=== PATIENT | female | born 1950 | race Caucasian/White ===

== ENCOUNTER 2021-05-09 09:37 | Inpatient (IN) ==
[2021-05-09 11:54] LABS: Basophils # (Auto) 0.06 K/mcL (0.00-0.30); Basophils % (Auto) 0.2 % (0.0-2.0); Eosinophils # (Auto) 0.01 K/mcL (0.00-0.70); Eosinophils % (Auto) 0 % (0.0-7.0); Hematocrit 38.8 % (34.1-44.9); Hemoglobin 11.9 g/dL (11.2-15.7); Lymphocytes # (Auto) 1.02 K/mcL (1.50-4.80); Lymphocytes % (Auto) 3.7 % (15.5-49.0); Mean Cell Volume 71.6 fL (80.0-100.0); Mean Corpuscular HGB Conc 30.7 g/dL (31.0-36.0); Mean Platelet Volume 10.3 fL (7.4-10.4); Monocytes # (Auto) 1.02 K/mcL (0.10-0.90); Monocytes % (Auto) 3.7 % (1.0-12.0); Neutrophils % (Auto) 92.4 % (38.0-78.0); Platelet Count 417 K/mcL (140-440); RBC 5.42 M/mcL (3.59-5.38); Red Cell Distribution Width 21.6 % (11.5-14.5); WBC 27.5 K/mcL (4.5-11.0)
[2021-05-09 12:00] LABS: ALT/SGPT 17 U/L (<40); AST/SGOT 21 U/L (<32); Albumin 2.9 gm/dL (3.2-5.2); Albumin/Globulin Ratio 0.8 (1.0-2.3); Alkaline Phosphatase 83 U/L (39-117); Bilirubin,Total 0.3 mg/dL (0.1-1.0); Blood Urea Nitrogen 17 mg/dL (8-23); Calcium 9.3 mg/dL (8.6-10.4); Carbon Dioxide 29 mmol/L (22-30); Chloride 93 mmol/L (96-108); Globulin 3.7 gm/dL (2.2-3.7); Glomerular Filtration Rate 91; Glucose 133 mg/dL (70-105)
--- NOTE | 2021-05-09 12:21 | Emergency Department Note ---
Abdominal Pain HPI General Chief Complaint: Abdominal Pain Stated Complaint: abdominal pain Time Seen by Provider: 05/09/21 12:08 Source: patient Mode of arrival: ambulatory Limitations: no limitations History of Present Illness HPI Narrative: 71-year-old female presents to the ER for complaints of abdominal pain. She was seen on 04/29/2021 and diagnosed with mild diverticulitis. She was placed on Augmentin and has completed that. Unfortunately, her symptoms have not ultimately improved. She does complain of some chills, but no fevers. She's had mild nausea, but no vomiting. Last stool was about a teaspoon of liquid stool last night, denies melena or hematochezia. She did pass a small amount of gas this morning. Previous abdominal surgeries include a hysterectomy and appendectomy. She is on chronic morphine for scoliosis. She did increase her morphine equivalent dosing with short acting after her evaluation here over a week ago. She is now out of that. She said that did help with her pain. She does struggle with chronic constipation. She called Dr. Montelongo's office this morning for recommendations and they felt she should be reevaluated in the ER. Dr. Montelongo is her regular walter roenterologist. Of note the patient has a history of lung cancer status post chemo and radiation therapies. She also has a leukocytosis at baseline, which is allegedly been worked up by her heme-oncologist without clear diagnosis. Related Data Home Medications Medication Instructions Recorded Confirmed celecoxib 200 mg PO DAILY 01/05/16 07/27/20 citalopram 20 mg PO DAILY 01/05/16 07/27/20 omeprazole 20 mg PO ACB 01/05/16 07/27/20 cholecalciferol (vitamin D3) 250 10,000 unit PO QDAY 11/16/17 07/27/20 mcg (10,000 unit) capsule estradiol cypionate 5 mg/mL 5 mg IM QWEEK ml 11/16/17 07/27/20 intramuscular oil magnesium 250 mg tablet 250 mg PO QDAY 11/16/17 07/27/20 prasterone (dhea) 50 mg tablet 100 mg PO QDAY tab 11/16/17 07/27/20 progesterone micronized 200 mg 200 mg PO QHS 11/16/17 07/27/20 capsule testosterone cypionate 100 mg/mL 50 mg IM QDAY ml 11/16/17 07/27/20 intramuscular oil thyroid (pork) 65 mg tablet 130 mg PO QDAY tab 11/16/17 07/27/20 zolpidem 10 mg tablet 10 mg PO PRN tab 11/16/17 07/27/20 Ketorolac Tromethamine 11/18/17 07/27/20 eletriptan [Relpax] 40 mg PO 11/18/17 07/27/20 spironolactone [Aldactone] 100 mg PO DAILY 11/18/17 07/27/20 Previous Rx's Medication Instructions Recorded amoxicillin-pot clavulanate 1 tab PO BID #20 tab 04/29/21 [Augmentin] morphine 7.5 mg PO Q8H PRN #6 tab 04/29/21 Allergies Allergy/AdvReac Type Severity Reaction Status Date / Time aspirin Allergy Unknown Unknown Verified 05/09/21 09:39 Review of Systems ROS ROS Narrative: Narrative: All systems ED: reviewed and negative except as stated. PFSH Narrative Patient History Narrative: Narrative: Medical/Surgical/Family History All Active Problems (Updated 05/09/21 @ 16:01 by Colleen Tanner PA-C) Diverticulitis (Acute) SBO (small bowel obstruction) (Acute) Hyponatremia (Acute) H/O leukocytosis (Acute) Muscle stiffness (Chronic) Muscle pain (Chronic) Muscle weakness (Chronic) Joint pain (Chronic) Arthritis (Chronic) Wears dentures (Chronic) Ringing in ears (Chronic) Fatigue (Chronic) Weakness (Chronic) History of surgery (Chronic) History of right hip replacement (Chronic) History of appendectomy (Chronic) History of cervical discectomy (Chronic) History of surgery (Chronic) History of fracture (Chronic) History of tonsillectomy (Chronic) History of colonoscopy (Chronic) History of esophagogastroduodenoscopy (EGD) (Chronic) History of hysterectomy (Chronic) Alcoholism (Chronic) COPD (chronic obstructive pulmonary disease) (Chronic) Right shoulder pain (Chronic) History of surgery (Chronic) Asthma (Chronic) Low back pain (Chronic) Radiculopathy, lumbar region (Chronic) Radiculopathy, lumbosacral region (Chronic) Pain in left hip (Chronic) Bilateral primary osteoarthritis of hip (Chronic) Calculus of kidney (Chronic) Ureteral calculus (Chronic) Viral exanthem (Chronic) Rash (Chronic) Lower abdominal pain (Chronic) Medical History Alcoholism Arthritis Asthma Bilateral primary osteoarthritis of hip Calculus of kidney COPD (chronic obstructive pulmonary disease) Fatigue History of fracture Joint pain Low back pain Muscle pain Muscle stiffness Muscle weakness Pain in left hip Radiculopathy, lumbar region Radiculopathy, lumbosacral region Right shoulder pain Ringing in ears Ureteral calculus Weakness Wears dentures Surgical History History of appendectomy History of cervical discectomy History of colonoscopy History of esophagogastroduodenoscopy (EGD) History of hysterectomy History of right hip replacement History of surgery TF JANELLE #2 Rt L2-3, L5-S1 w/sed 06/11/1803/02 TF JANELLE #1 L2-3, Right L5-S1, left w/sed 03/12/201801/30 TF JANELLE #2 Lt L5-S1 w/sed 01/29/1811/30 Intra-articular Hip Joint Injection, left w/o sed 11/29/1710/31 TF JANELLE #1 L5-S1, S1, left w/sed 11/12/201706/01 LESI #3 L4-5 w/sed 06/11/201703/01 TF JANELLE #2 Rt L2-3 w/sed 03/12/201703/01 TF JANELLE #1 Rt L2-3 w/sed 02/20/201711/25 TF JANELLE #2 L5-S1 w/o sed 12/05/1210/26 TF JANELLE #1 L3-4, right w/o sed 11/07/2012 History of surgery calcaneus fracture History of surgery r middle finger/tendon realignment History of tonsillectomy Family History Mother Cancer Social History Smoking Status: Current every day smoker Alcohol Intake Frequency: does not drink Substance Use: does not use Exam Narrative Narrative: General: AOx3, NAD, nontoxic appearing. Pleasant and conversant. HEENT: PERRL, EOMI, normocephalic. Moist mucous membranes. Normal facies and normal dentition. Chest: Symmetric Respiratory: Lungs clear to auscultation bilaterally. No respiratory distress. Unlabored breathing. Heart: Regular rate and rhythm, no murmurs/clicks/rubs. Abdomen: Significantly distended, generalized tenderness, hypoactive bowel tones. No organomegaly. Extremities: Warm and well perfused. No edema. DP 2+ bilaterally. No venous stasis. Neuro: No focal deficits. Cranial nerves II-XII grossly normal. Skin: Warm dry, no rashes or lesions, no cyanosis. Psych: Normal mood and affect Heme/Lymph: No abnormal bruising General Limitations: no limitations Course Course Course Narrative: This a 71-year-old female patient who presents with worsening abdominal pain after being treated for diverticulitis 10 days ago in our ER. Reevaluation(s) Reevaluation #1: Obtain CBC, CMP CT of the abdomen pelvis without contrast (patient has an allergy to IV contrast) Establish IV access and give antiemetics and analgesics as needed Reevaluation #2: CBC with worsening leukocytosis now 27,000 (was 20,000 10 days ago). Patient has chronic leukocytosis at baseline and has been seen by hematology oncology in the past for this with a history of lung tumor status post chemo and radiation therapies. Reevaluation #3: Patient is pain is improved with IV morphine CT of the abdomen pelvis shows possible small bowel obstruction without a transition point with multiple small loops of air and fluid-filled bowel in the jejunum. The colon is full of stool. The distal ileum is decompressed. I called Dr. Covarrubias, general surgery on-call, to discuss the patient. We eventually decided to admit, place an NG tube for decompression, and she will likely have a small bowel follow-through tomorrow. She is to be n.p.o. Vital Signs Vital signs: Vital Signs Temperature 97.9 F 05/09/21 09:38 Pulse Rate 74 05/09/21 09:38 Respiratory Rate 16 05/09/21 09:38 Blood Pressure 138/58 05/09/21 09:38 Pulse Oximetry (%) 93 05/09/21 09:38 Temperature 97.9 F 05/09/21 09:38 Pulse Rate 76 05/09/21 15:46 Respiratory Rate 16 05/09/21 09:38 Blood Pressure 127/55 05/09/21 15:46 Pulse Oximetry (%) 92 05/09/21 15:46 [facility] MDM Narrative Medical decision making narrative: Small bowel obstruction Leukocytosis Hyponatremia Patient is being admitted to general surgery, Dr. Covarrubias, for placement of NG tube and probable small bowel follow-through study tomorrow. Will place NG tube here in the ER and start some maintenance IV fluids. Lab Data Result diagrams: 05/09/21 10:14 05/09/21 10:14 Labs: Lab Results 05/09/21 05/09/21 05/09/21 Range/Units 10:14 10:14 10:35 WBC 27.5 H (4.5-11.0) K/mcL RBC 5.42 H (3.59-5.38) M/mcL Hgb 11.9 (11.2-15.7) g/dL Hct 38.8 (34.1-44.9) % MCV 71.6 L (80.0-100.0) fL MCH 22.0 L (26.0-34.0) pg MCHC 30.7 L (31.0-36.0) g/dL RDW 21.6 H (11.5-14.5) % Plt Count 417 (140-440) K/mcL MPV 10.3 (7.4-10.4) fL Neut % (Auto) 92.4 H (38.0-78.0) % Lymph % (Auto) 3.7 L (15.5-49.0) % [place] % (Auto) 3.7 (1.0-12.0) % Eos % (Auto) 0 (0.0-7.0) % Baso % (Auto) 0.2 (0.0-2.0) % Lymph # (Auto) 1.02 L (1.50-4.80) K/mcL [place] # (Auto) 1.02 H (0.10-0.90) K/mcL Eos # (Auto) 0.01 (0.00-0.70) K/mcL Baso # (Auto) 0.06 (0.00-0.30) K/mcL Absolute Neutrophils 25.35 H (1.80-8.00) K/mcL Sodium 131 L (133-145) mmol/L Potassium 3.6 (3.3-5.1) mmol/L Chloride 93 L (96-108) mmol/L Carbon Dioxide 29 (22-30) mmol/L Anion Gap 9.0 (8.0-16.0) BUN 17 (8-23) mg/dL Creatinine 0.6 (0.6-1.1) mg/dL GFR Calculation 91 Glucose 133 H (70-105) mg/dL Calcium 9.3 (8.6-10.4) mg/dL Total Bilirubin 0.3 (0.1-1.0) mg/dL AST 21 (<32) U/L ALT 17 (<40) U/L Alkaline Phosphatase 83 (39-117) U/L Total Protein 6.6 (5.9-8.4) gm/dL Albumin 2.9 L (3.2-5.2) gm/dL Globulin 3.7 (2.2-3.7) gm/dL Albumin/Globulin Ratio 0.8 L (1.0-2.3) Urine Color [place] Urine Appearance Hazy A (Clear) Urine pH 5.0 (5.0-9.0) Ur Specific [place] 1.035 (1.000-1.035) Urine Protein 30 A (Negative) mg/dL Urine Glucose (UA) Negative (Negative) mg/dL Urine Ketones Negative (Negative) mg/dL Urine Occult Blood Negative (Negative) mg/dL Urine Nitrate Negative (Negative) Urine Bilirubin Negative (Negative) mg/dL Urine Urobilinogen Negative mg/dL Ur Leukocyte Esterase Negative (Negative) /uL Urine RBC 1 (0-3) /hpf Urine WBC 2 (0-4) /hpf Ur Squamous Epith Cells 22 H (0-4) /hpf Urine Bacteria None (0) /hpf Urine Mucus Few A (None) /hpf Ur Culture Indicated? No Discharge Plan Patient/Caregiver Discharge Instructions Pt seen by ASSISTANT MANAGER [employer]IRSIDE [employer]PERATIONS/PA only: Yes Clinical Impression: SBO (small bowel obstruction), Hyponatremia, H/O leukocytosis Patient Disposition: Xfer As Inpt ([facility]) Condition: Fair Follow up with: Lisseth King MD [Primary Care Provider] - Prescriptions: No Action thyroid (pork) [Nature-Throid] 65 mg tablet 130 mg PO QDAY RF: 0 prasterone (dhea) [DHEA] 50 mg tablet 100 mg PO QDAY RF: 0 cholecalciferol (vitamin D3) 10,000 unit capsule 10,000 unit PO QDAY RF: 0 magnesium 250 mg tablet 250 mg PO QDAY RF: 0 estradiol cypionate [Depo-Estradiol] 5 mg/mL oil 5 mg IM QWEEK RF: 0 progesterone micronized 200 mg capsule 200 mg PO QHS RF: 0 testosterone cypionate [Depo-Testosterone] 100 mg/mL oil 50 mg IM QDAY RF: 0 zolpidem [Ambien] 10 mg tablet 10 mg PO PRN (Reason: insomnia) RF: 0 celecoxib 200 MG capsule 200 mg PO DAILY RF: 0 citalopram 20 MG tablet 20 mg PO DAILY RF: 0 omeprazole 20 MG capsule 20 mg PO ACB RF: 0 spironolactone [Aldactone] 100 MG tablet 100 mg PO DAILY RF: 0 eletriptan [Relpax] 40 MG tablet 40 mg PO RF: 0 Ketorolac Tromethamine RF: 0 amoxicillin-pot clavulanate [Augmentin] 875-125 mg tablet 1 tab PO BID Qty: 20 RF: 0 morphine 15 mg tablet 7.5 mg PO Q8H PRN (Reason: pain) Qty: 6 RF: 0
[2021-05-09] MEDS ORDERED: morphine 4 MG/ML VIAL IV ONE ×2 (12:45→15:12)
[2021-05-09 12:48] LABS: Appearance,Urine HAZY (Clear); Bilirubin,Urine Negative (Negative); Color,Urine AMBER; Culture Indicated,Urine No; Glucose,Urine (UA) Negative (Negative); Ketones,Urine Negative (Negative); Leukocyte Esterase,Urine Negative /uL (Negative); Mucus,Urine FEW /hpf; Nitrate,Urine Negative (Negative); Protein,Urine 30 mg/dL (Negative); Specific Gravity,Urine 1.035 (1.000-1.035); Urine Blood Negative (Negative); Urine RBC 1 /hpf (0-3); Urine Squamous Epithelial Cell 22 /hpf (0-4); Urine WBC 2 /hpf (0-4); Urobilinogen,Urine Negative
--- NOTE | 2021-05-09 13:41 | Cat Scan Report ---
History: Abdominal pain, failed treatment for diverticulitis TECHNIQUE: The abdomen was imaged without oral or IV contrast. There is a history of allergic reaction to contrast. Patient was imaged 2.5 mm intervals from the diaphragm to the symphysis pubis. Sagittal and coronal reformats were created. The radiation exposure was limited using dose reduction technology. FINDINGS: The abdomen is difficult to evaluate due to lack of intraperitoneal fat and no contrast. The liver and spleen appear normal in size and homogeneous. Gallbladder is mildly distended but the wall is thickened and there are no stones. The bile ducts are nondilated. No abnormalities detected in or near the pancreas. The adrenals are normal. Kidneys are normal in size shape and contour and there is no kidney stone or hydronephrosis. Moderate amount stool is present throughout large intestine. There are multiple diverticula in the sigmoid colon but without evidence of acute diverticulitis. There are multiple loops of dilated small intestine with air-fluid levels in the mid abdomen. They measure up to 4.4 cm in transverse diameter. Distal ileum is decompressed. The transition point cannot be identified. No mass is detected. There is no apparent adenopathy. No ascites or free intraperitoneal air are present. There is a moderate levoscoliotic curvature in the upper lumbar spine with advanced degenerative disc disease and arthritis throughout the lumbar and lower thoracic spine. Patient is a well-positioned right hip prosthesis. The urinary bladder is nearly completely decompressed. Uterus and ovaries are not identified. Comparison with the prior CT done on 04/29/21 shows the small bowel dilatation has become significantly worse and the low-grade diverticulitis has resolved. IMPRESSION: Mid to distal small bowel obstruction of undetermined etiology. Diverticulosis but without evidence of acute diverticulitis Dr. Kumar was called with the report Interpreted and Authenticated by: Jimbo Canas 05/09/21
[2021-05-09] MEDS: 0.9 % SODIUM CHLORIDE 1,000 ML IV SCH (16:09)
--- NOTE | 2021-05-09 16:20 | XRay Report ---
HISTORY: Small bowel obstruction, NG tube insertion FINDINGS: Nasogastric tube has been inserted. The tip is along the greater curvature of the fundus of the stomach and the sidehole is near the level of the gastroesophageal junction. The stomach is decompressed. Moderate levoscoliotic curvature is present in the upper lumbar spine. IMPRESSION: Nasogastric tube in the fundus of the stomach Interpreted and Authenticated by: Jimbo Canas 05/09/21
[2021-05-09] MEDS ORDERED: ONDANSETRON 4 MG/2 ML VIAL IV PRN (17:27)
[2021-05-09] MEDS ORDERED: PANTOPRAZOLE 40 MG VIAL IV ONE (17:41)
[2021-05-09] MEDS ORDERED: MINERAL OIL 1 DOSE ENEMA PR ONE (17:43)
--- NOTE | 2021-05-09 17:50 | General Surgery Consult Note ---
HPI Data of Consult Patient: new to practice Consult date: 05/09/21 Primary Care Provider: Lisseth King Consult Narrative cc:: CC: Ms Byrd is seen in the ED this afternoon after an almost 2 weeks history now of worsening and/or non resolving Abdominal Pain. She has longstanding issues with chronic back and abdominal pain and is on TID morphine chronically for both back and also for abdominal pain. She suffers from Scoliosis and issues with severe constipation. She was at her baseline level of health until about 2 weeks ago when things began to become far more severe than they previously had been. She was in the ER about 10 days ago and at that time a CT scan was suggestive of Diverticulitis and she was sent home on oral ABs. Her symptoms have only steadily worsened. She has not been vomiting but has had nausea. She has had smaller BMs and has been passing gas. She returned to the ER today and a CT Scan suggested a SBO along with high volumes of colonic stool. No transition zone was seen however. She has had a prior open ROSA/BSO many years ago via a vertical midline incision as well as an appendectomy around that same time. It has been decades since she had any abdominal surgery and she has never been previously diagnosed with an adhesion related SBO. Her most recent Colonoscopy was 3 years ago without significant finding. She denies any major cardiopulmonary issue and is not currently on any oral anticoagulation. Review of Systems All systems: reviewed and no additional remarkable complaints except as stated PFSH PFSH All Active Problems (Updated 05/09/21 @ 17:37 by Shiv Covarrubias MD) SBO (small bowel obstruction) (Acute) Diverticulitis (Acute) SBO (small bowel obstruction) (Acute) Hyponatremia (Acute) H/O leukocytosis (Acute) Muscle stiffness (Chronic) Muscle pain (Chronic) Muscle weakness (Chronic) Joint pain (Chronic) Arthritis (Chronic) Wears dentures (Chronic) Ringing in ears (Chronic) Fatigue (Chronic) Weakness (Chronic) History of surgery (Chronic) History of right hip replacement (Chronic) History of appendectomy (Chronic) History of cervical discectomy (Chronic) History of surgery (Chronic) History of fracture (Chronic) History of tonsillectomy (Chronic) History of colonoscopy (Chronic) History of esophagogastroduodenoscopy (EGD) (Chronic) History of hysterectomy (Chronic) Alcoholism (Chronic) COPD (chronic obstructive pulmonary disease) (Chronic) Right shoulder pain (Chronic) History of surgery (Chronic) Asthma (Chronic) Low back pain (Chronic) Radiculopathy, lumbar region (Chronic) Radiculopathy, lumbosacral region (Chronic) Pain in left hip (Chronic) Bilateral primary osteoarthritis of hip (Chronic) Calculus of kidney (Chronic) Ureteral calculus (Chronic) Viral exanthem (Chronic) Rash (Chronic) Lower abdominal pain (Chronic) Medical History Alcoholism Arthritis Asthma Bilateral primary osteoarthritis of hip Calculus of kidney COPD (chronic obstructive pulmonary disease) Fatigue History of fracture Joint pain Low back pain Muscle pain Muscle stiffness Muscle weakness Pain in left hip Radiculopathy, lumbar region Radiculopathy, lumbosacral region Right shoulder pain Ringing in ears Ureteral calculus Weakness Wears dentures Surgical History History of appendectomy History of cervical discectomy History of colonoscopy History of esophagogastroduodenoscopy (EGD) History of hysterectomy History of right hip replacement History of surgery TF JANELLE #2 Rt L2-3, L5-S1 w/sed 06/11/1803/02 TF JANELLE #1 L2-3, Right L5-S1, left w/sed 03/12/201801/30 TF JANELLE #2 Lt L5-S1 w/sed 01/29/1811/30 Intra-articular Hip Joint Injection, left w/o sed 11/29/1710/31 TF JANELLE #1 L5-S1, S1, left w/sed 11/12/201706/01 LESI #3 L4-5 w/sed 06/11/201703/01 TF JANELLE #2 Rt L2-3 w/sed 03/12/201703/01 TF JANELLE #1 Rt L2-3 w/sed 02/20/201711/25 TF JANELLE #2 L5-S1 w/o sed 12/05/1210/26 TF JANELLE #1 L3-4, right w/o sed 11/07/2012 History of surgery calcaneus fracture History of surgery r middle finger/tendon realignment History of tonsillectomy Family History Mother Cancer Social History (Updated 07/27/20 @ 11:35 by Phuong Higuera) alcohol intake frequency: does not drink substance use type: does not use MEDS/ALLERGIES Home Medications and Allergies Home Medications Medication Instructions Recorded Confirmed Type celecoxib 200 mg PO DAILY 01/05/16 05/09/21 History citalopram 20 mg PO DAILY 01/05/16 05/09/21 History omeprazole 20 mg PO ACB 01/05/16 05/09/21 History cholecalciferol (vitamin D3) 250 10,000 unit PO QDAY 11/16/17 05/09/21 History mcg (10,000 unit) capsule estradiol cypionate 5 mg/mL 5 mg IM QWEEK ml 11/16/17 05/09/21 History intramuscular oil magnesium 250 mg tablet 250 mg PO QDAY 11/16/17 05/09/21 History prasterone (dhea) 50 mg tablet 100 mg PO QDAY tab 11/16/17 05/09/21 History testosterone cypionate 100 mg/mL 50 mg IM QDAY ml 11/16/17 05/09/21 History intramuscular oil thyroid (pork) 65 mg tablet 130 mg PO QDAY tab 11/16/17 05/09/21 History zolpidem 10 mg tablet 10 mg PO PRN tab 11/16/17 07/27/20 History eletriptan [Relpax] 40 mg PO DAILY 11/18/17 05/09/21 History spironolactone [Aldactone] 100 mg PO DAILY 11/18/17 07/27/20 History morphine 7.5 mg PO Q8H PRN #6 tab 04/29/21 05/09/21 Rx Allergies Allergy/AdvReac Type Severity Reaction Status Date / Time aspirin Allergy Unknown Unknown Verified 05/09/21 09:39 Physical Examination Vital Signs Vital signs: Temp Pulse Resp BP Pulse Ox 97.9 F 74 16 130/53 94 05/09/21 09:38 05/09/21 17:01 05/09/21 09:38 05/09/21 17:16 05/09/21 17:01 General physical appearance General physical exam: no distress and other (appears comfortable in no acute distress ) Eyes Eye exam: PERRL ENT ENT exam: normal pinna Head Head exam IM: Present atraumatic and normocephalic Neck Neck exam: trachea midline and no lymphadenopathy Cardiovascular Cardiovascular exam IM: Present normal rate and rhythm Respiratory Respiratory exam: normal expansion and normal respiratory effort Abdomen Abdomen: Present soft and non tender (soft but moderate distension without substantial tenderness to exam and no peritoneal findings of guarding or other issue - NGT is in place ) Hernia: Present none (none seen ) Genitourinary Genitourinary (Female): Present other (no CVA tenderness ) Integumentary Integumentary: Present no rash and no abnormal pigmentation Neurologic Neurologic: Present other (grossly intact, alert and oriented x 3 ) Psychiatric Psychiatric: Present oriented to time, oriented to person and oriented to place Results Labs Result diagrams: 05/09/21 10:14 05/09/21 10:14 Labs: Abnormal lab results 05/09/21 05/09/21 05/09/21 Range/Units 10:14 10:14 10:35 WBC 27.5 H (4.5-11.0) K/mcL RBC 5.42 H (3.59-5.38) M/mcL MCV 71.6 L (80.0-100.0) fL MCH 22.0 L (26.0-34.0) pg MCHC 30.7 L (31.0-36.0) g/dL RDW 21.6 H (11.5-14.5) % Neut % (Auto) 92.4 H (38.0-78.0) % Lymph % (Auto) 3.7 L (15.5-49.0) % Lymph # (Auto) 1.02 L (1.50-4.80) K/mcL [place] # (Auto) 1.02 H (0.10-0.90) K/mcL Absolute Neutrophils 25.35 H (1.80-8.00) K/mcL Sodium 131 L (133-145) mmol/L Chloride 93 L (96-108) mmol/L Glucose 133 H (70-105) mg/dL Albumin 2.9 L (3.2-5.2) gm/dL Albumin/Globulin Ratio 0.8 L (1.0-2.3) Urine Appearance Hazy A (Clear) Urine Protein 30 A (Negative) mg/dL Ur Squamous Epith Cells 22 H (0-4) /hpf Urine Mucus Few A (None) /hpf Diabetes panel 05/09/21 Range/Units 10:14 Sodium 131 L (133-145) mmol/L Potassium 3.6 (3.3-5.1) mmol/L Chloride 93 L (96-108) mmol/L Carbon Dioxide 29 (22-30) mmol/L BUN 17 (8-23) mg/dL Creatinine 0.6 (0.6-1.1) mg/dL Glucose 133 H (70-105) mg/dL Calcium 9.3 (8.6-10.4) mg/dL AST 21 (<32) U/L ALT 17 (<40) U/L Alkaline Phosphatase 83 (39-117) U/L Total Protein 6.6 (5.9-8.4) gm/dL Albumin 2.9 L (3.2-5.2) gm/dL Calcium panel 05/09/21 Range/Units 10:14 Calcium 9.3 (8.6-10.4) mg/dL Albumin 2.9 L (3.2-5.2) gm/dL Pituitary panel 05/09/21 Range/Units 10:14 Sodium 131 L (133-145) mmol/L Potassium 3.6 (3.3-5.1) mmol/L Chloride 93 L (96-108) mmol/L Carbon Dioxide 29 (22-30) mmol/L BUN 17 (8-23) mg/dL Creatinine 0.6 (0.6-1.1) mg/dL Glucose 133 H (70-105) mg/dL Calcium 9.3 (8.6-10.4) mg/dL Adrenal panel 05/09/21 Range/Units 10:14 Sodium 131 L (133-145) mmol/L Potassium 3.6 (3.3-5.1) mmol/L Chloride 93 L (96-108) mmol/L Carbon Dioxide 29 (22-30) mmol/L BUN 17 (8-23) mg/dL Creatinine 0.6 (0.6-1.1) mg/dL Glucose 133 H (70-105) mg/dL Calcium 9.3 (8.6-10.4) mg/dL Total Bilirubin 0.3 (0.1-1.0) mg/dL AST 21 (<32) U/L ALT 17 (<40) U/L Alkaline Phosphatase 83 (39-117) U/L Total Protein 6.6 (5.9-8.4) gm/dL Albumin 2.9 L (3.2-5.2) gm/dL All other labs normal. A/P Narrative A/P Narrative: Abdominal pain in setting of profound chronic constipation and chronic narcotic use Possible Adhesion related SBO At this point, I would favor conservative mgmt with NGT decompression along with IVF, IV ABs, and observational mgmt. She is not currently tender or tachycardic and I don't see any clear indications for urgent or emergent operative intervention and presence of an SBO would be best evaluated with a SBF T via water soluble contrast across the NGT in the next 24 to 48 hours Lengthy discussion is had with patient and family and they are aware that she may well end up requiring operative intervention on this admission but in the absence of a clear transition zone and in the setting of other confounding factors, I recommend holding off on that for now. Time Spent With Patient Time: Total time spent is greater than 50% in coordination of care (as documented) at patient's floor/unit and/or counseling patient:
[2021-05-09] MEDS: PIPERACILLIN SODIUM/TAZOBACTAM 3.375 GM in DEXTROSE 5% IN WATER 50 ML IV SCH ×2 (18:43→23:16)
--- NOTE | 2021-05-09 18:55 | XRay Report ---
HISTORY: Reposition nasogastric tube FINDINGS: the NG tube has been advanced further into the stomach. The tip is in the body and the sidehole in the mid fundus. Stomach is decompressed. There are several dilated loops of small bowel in the upper abdomen. No free intra-abdominal air is present. IMPRESSION: Well-positioned NG tube in the mid body of the stomach Interpreted and Authenticated by: Jimbo Canas 05/09/21
[2021-05-09] MEDS: DEXTROSE 5%-NS W/20MEQ KCL 1,000 ML IV SCH (19:52)
[2021-05-09] MEDS: 0.9 % SODIUM CHLORIDE 10 ML SYRINGE IV SCH (20:38)
[2021-05-09] MEDS: morphine 4 MG/ML VIAL IV PRN (20:58)
[2021-05-10] MEDS: morphine 4 MG/ML VIAL IV PRN ×5 (01:06→19:59)
[2021-05-10] MEDS: DEXTROSE 5%-NS W/20MEQ KCL 1,000 ML IV SCH ×3 (03:09→15:17)
[2021-05-10] MEDS: 0.9 % SODIUM CHLORIDE 10 ML SYRINGE IV SCH ×3 (04:05→20:11)
[2021-05-10] MEDS: PIPERACILLIN SODIUM/TAZOBACTAM 3.375 GM in DEXTROSE 5% IN WATER 50 ML IV SCH ×4 (05:32→23:20)
[2021-05-10] MEDS: 0.9 % SODIUM CHLORIDE 1,000 ML IV SCH (05:32)
[2021-05-10 08:17] LABS: Basophils # (Auto) 0.09 K/mcL (0.00-0.30); Basophils % (Auto) 0.4 % (0.0-2.0); Eosinophils # (Auto) 0.09 K/mcL (0.00-0.70); Eosinophils % (Auto) 0.4 % (0.0-7.0); Hematocrit 37.3 % (34.1-44.9); Hemoglobin 11.3 g/dL (11.2-15.7); Lymphocytes # (Auto) 0.88 K/mcL (1.50-4.80); Lymphocytes % (Auto) 3.8 % (15.5-49.0); Mean Corpuscular HGB Conc 30.3 g/dL (31.0-36.0); Mean Platelet Volume 10.8 fL (7.4-10.4); Monocytes # (Auto) 1.55 K/mcL (0.10-0.90); Monocytes % (Auto) 6.8 % (1.0-12.0); Neutrophils % (Auto) 88.6 % (38.0-78.0); Platelet Count 442 K/mcL (140-440); RBC 5.18 M/mcL (3.59-5.38); Red Cell Distribution Width 21.9 % (11.5-14.5); WBC 22.9 K/mcL (4.5-11.0)
[2021-05-10 08:39] LABS: Blood Urea Nitrogen 13 mg/dL (8-23); Carbon Dioxide 29 mmol/L (22-30); Chloride 99 mmol/L (96-108); Glomerular Filtration Rate 91; Glucose 88 mg/dL (70-105)
[2021-05-10] MEDS ORDERED: BENZOCAINE 1 SPRAY BOTTLE TOPICAL SCH (14:24)
[2021-05-10] MEDS ORDERED: FLEETS ADULT ENEMA PR ONE (14:28)
[2021-05-10] MEDS: MINERAL OIL 1 DOSE ENEMA PR SCH ×2 (15:09→20:43)
--- NOTE | 2021-05-10 19:17 | General Surgery Progress Note ---
SUBJECTIVE Subjective Patient information: Note initiated : 05/10/21 at 815 and 1315 Service Date, if different from initiated Date: [] Patient: Ilda Byrd 71 y/o F admitted on 05/09/21 for abdominal pain. Chief Complaint: [Abdominal Pain with possible SBO] She seems to feel better overall with less pain. Tolerating NGT ok, no gas or stool yet today Constitutional Vitals: Vital Signs Temp Pulse Resp BP Pulse Ox 97.9 F 79 20 127/61 93 05/10/21 16:00 05/10/21 16:00 05/10/21 16:00 05/10/21 16:00 05/10/21 16:00 Period Temp Pulse Resp BP Sys/Wong Pulse Ox Last 24 Hr 97 F-99.5 F 79-96 16-20 120-137/52-61 90-93 Intake and Output 05/10/21 05/10/21 05/10/21 05:59 13:59 21:59 Intake Total 1170 50 200 Output Total 270 840 Balance 900 50 -640 Weight 110 lb Patient Weight 05/11/21 05:59 Weight 110 lb Intake & Output: Intake & Output 05/10/21 05/10/21 05/10/21 05:59 13:59 21:59 Intake Total 1170 50 200 Output Total 270 840 Balance 900 50 -640 Weight 110 lb Intake: IV 1050 50 50 Sodium Chloride 0.9% 1,000 ml @ 1000 75 mls/hr IV .[id number] GI[facility]GIO Rx#: [id number] Zosyn 3.375 gm In Dextrose 5% 50 50 50 in Water 50 ml @ 100 mls/hr IV Q6H GIORGIO Rx#:[id number] Oral 120 150 Output: Gastric Drainage 270 840 Left Nare 270 840 Other: Stool Size Smear Stool Color Brown Stool Consistency Soft # Voids 3 5 General appearance: cooperative and no acute distress Head Head exam: Present atraumatic and normocephalic Respiratory Respiratory exam: Present normal respiratory exam; Absent respiratory distress Cardiovascular Cardiovascular exam: Present normal rate and rhythm and RRR GI/Abdominal Additional comments: softer but with some residual distension, no tenderness or guarding NGT in place and working well Neurological Exam Neurological exam: Present alert and oriented X3 Psychiatric Psychiatric exam: Present normal affect A/P Narrative A/P Narrative: Presumed Adhesion Related SBO Chronic Moderate to Severe Constipation Seems improved overall with normal vitals, normal lactate and improving WBC Continue NGT and bowel rest for now Check abdominal x rays in the AM and plan for probable SBFT after Re check labs in the AM and continue to monitor closely Time Spent With Patient Time: Total time spent is greater than 50% in coordination of care (as documented) at patient's floor/unit and/or counseling patient:
[2021-05-11] MEDS: morphine 4 MG/ML VIAL IV PRN ×6 (00:08→22:30)
[2021-05-11] MEDS: DEXTROSE 5%-NS W/20MEQ KCL 1,000 ML IV SCH ×3 (01:34→23:55)
[2021-05-11] MEDS: 0.9 % SODIUM CHLORIDE 10 ML SYRINGE IV SCH ×3 (04:34→23:07)
[2021-05-11] MEDS: PIPERACILLIN SODIUM/TAZOBACTAM 3.375 GM in DEXTROSE 5% IN WATER 50 ML IV SCH ×4 (05:39→23:55)
[2021-05-11 07:35] LABS: Hematocrit 35.4 % (34.1-44.9); Hemoglobin 10.8 g/dL (11.2-15.7); Mean Cell Volume 74.2 fL (80.0-100.0); Mean Corpuscular HGB Conc 30.5 g/dL (31.0-36.0); Mean Platelet Volume 9.8 fL (7.4-10.4); Platelet Count 409 K/mcL (140-440); RBC 4.77 M/mcL (3.59-5.38); Red Cell Distribution Width 22.5 % (11.5-14.5); WBC 15.7 K/mcL (4.5-11.0)
[2021-05-11 08:24] LABS: Blood Urea Nitrogen 8 mg/dL (8-23); Calcium 8.8 mg/dL (8.6-10.4); Carbon Dioxide 27 mmol/L (22-30); Chloride 100 mmol/L (96-108); Glomerular Filtration Rate 97; Glucose 146 mg/dL (70-105)
--- NOTE | 2021-05-11 08:49 | XRay Report ---
HISTORY: Abdominal pain, follow-up small bowel obstruction FINDINGS: There are several loops of dilated small bowel in the mid abdomen which contain air-fluid levels. They measure up to five cm in diameter. This is similar to the findings seen on the CT done on 05/09/21. The nasogastric tube has been pulled back into the mid thoracic esophagus. The stomach is nondistended. Small amount of air and stool are present in normal caliber large intestine. IMPRESSION: Persistent mid small bowel obstruction Nasogastric tube in the mid esophagus Interpreted and Authenticated by: Jimbo Canas 05/11/21
[2021-05-11] MEDS: MINERAL OIL 1 DOSE ENEMA PR SCH ×2 (10:31→21:02)
--- NOTE | 2021-05-11 11:34 | XRay Report ---
HISTORY: Small bowel obstruction, advanced nasogastric tube FINDINGS: The NG tube has been advanced into the distal thoracic esophagus. It remains above the diaphragm. The dilated small bowel is unchanged from the earlier study done at 5:51 AM on the same date. IMPRESSION: NG tube in the distal esophagus Interpreted and Authenticated by: Jimbo Canas 05/11/21
--- NOTE | 2021-05-11 11:49 | XRay Report ---
HISTORY: Advanced nasogastric tube FINDINGS: The NG tube has been advanced into the body of the stomach. The sidehole is in the upper fundus. Stomach is decompressed. There are still dilated loops of small bowel in the midabdomen due to mid small bowel obstruction. IMPRESSION: Well-positioned NG tube in the body of the stomach Interpreted and Authenticated by: Jimbo Canas 05/11/21
[2021-05-11] MEDS ORDERED: morphine 2 MG/ML VIAL IV ONE (14:36)
--- NOTE | 2021-05-11 15:14 | General Surgery Progress Note ---
SUBJECTIVE Subjective Patient information: Note initiated : 05/11/21 at 1215 Service Date, if different from initiated Date: [] Patient: Ilda Byrd 71 y/o F admitted on 05/09/21 for abdominal pain. Chief Complaint: [Abdominal pain with apparent adhesion related SBO She continues to feel somewhat improved overnight. Beginning to pass some gas and stool. Some crampy pain remains ] Constitutional Vitals: Vital Signs Temp Pulse Resp BP Pulse Ox 97.8 F 78 16 120/65 94 05/11/21 12:00 05/11/21 12:00 05/11/21 12:00 05/11/21 12:00 05/11/21 12:00 Period Temp Pulse Resp BP Sys/Wong Pulse Ox Last 24 Hr 97.8 F-99.2 F 76-83 16-20 120-135/54-68 92-94 Intake and Output 05/11/21 05/11/21 05/11/21 05:59 13:59 21:59 Intake Total 1050 58 0 Output Total 270 350 Balance 780 -292 0 Intake & Output: Intake & Output 05/11/21 05/11/21 05/11/21 05:59 13:59 21:59 Intake Total 1050 58 0 Output Total 270 350 Balance 780 -292 0 Intake: IV 1050 58 0 Dextrose 5%-Ns W/20Meq KCl 1, 1000 8 000 ml @ 100 mls/hr IV .Q10H GIORGIO Rx#:[id number] Zosyn 3.375 gm In Dextrose 5% 50 50 0 in Water 50 ml @ 100 mls/hr IV Q6H GIORGIO Rx#:[id number] Oral 0 Output: Gastric Drainage 270 Left Nare 270 Void Amount 350 Other: Urine Appearance Clear Urine Color Bright Yellow Urine Odor Strong Stool Size Small Stool Color Brown Stool Consistency Soft Formed # Voids 1 1 General appearance: cooperative and no acute distress Head Head exam: Present atraumatic and normocephalic Eye Additional comments: anicteric Respiratory Respiratory exam: Present normal respiratory exam; Absent respiratory distress Cardiovascular Cardiovascular exam: Present normal rate and rhythm and RRR GI/Abdominal Additional comments: seems softer today with some residual distension though. No tenderness or guarding Neurological Exam Neurological exam: Present alert and oriented X3 Psychiatric Psychiatric exam: Present normal affect A/P Narrative A/P Narrative: Abdominal pain with apparent Adhesion Related SBO Overall she looks better clinically but plain films this am suggestive of persistent SBO Will continue NGT to LIWS for now and go ahead with SBFT today Continue hydration and bowel rest as well for now - issues discussed with patient at bedside prior to initiation of SBFT Time Spent With Patient Time: Total time spent is greater than 50% in coordination of care (as documented) at patient's floor/unit and/or counseling patient:
[2021-05-11] MEDS ORDERED: DIATRIZOATE MEGLU/DIATRIZO SOD 120 ML BOTTLE PO ONE (17:42)
--- NOTE | 2021-05-11 17:57 | XRay Report ---
HISTORY: Small bowel obstruction with nausea FINDINGS: Patient was given 600 mL of Gastrografin mixed 1:1.5 with water injected through the indwelling nasogastric tube Serial images were obtained up to five hours post administration of contrast. Multiple spot fluoroscopic images were acquired. One minute 11 seconds of fluoroscopy time was used. The stomach is distended with large amount of contrast and slowly empties. There is still a large amount of contrast in the stomach at five hours post ingestion. The duodenum is mildly dilated. There is moderate dilatation of the jejunum and proximal ileum. Loops measure up to 4.8 cm in diameter and contain multiple air-fluid levels. The delayed images show contrast passing into nondistended ascending colon. There are numerous superimposed loops of bowel in the midabdomen. The transition point is not identified. Distal ileum does not appear distended. The terminal ileum cannot be clearly identified. IMPRESSION: Incomplete mid small bowel obstruction of undetermined etiology. Interpreted and Authenticated by: Jimbo Canas 05/11/21
[2021-05-12] MEDS: morphine 4 MG/ML VIAL IV PRN ×5 (03:34→22:01)
[2021-05-12] MEDS: 0.9 % SODIUM CHLORIDE 10 ML SYRINGE IV SCH ×3 (05:38→21:33)
[2021-05-12] MEDS: PIPERACILLIN SODIUM/TAZOBACTAM 3.375 GM in DEXTROSE 5% IN WATER 50 ML IV SCH ×4 (05:39→23:58)
[2021-05-12 07:22] LABS: Hematocrit 34.7 % (34.1-44.9); Hemoglobin 10.6 g/dL (11.2-15.7); Mean Cell Volume 76.6 fL (80.0-100.0); Mean Corpuscular HGB Conc 30.5 g/dL (31.0-36.0); Mean Platelet Volume 9.9 fL (7.4-10.4); Platelet Count 431 K/mcL (140-440); RBC 4.53 M/mcL (3.59-5.38); Red Cell Distribution Width 23.2 % (11.5-14.5); WBC 16.5 K/mcL (4.5-11.0)
[2021-05-12 08:14] LABS: ALT/SGPT 19 U/L (<40); AST/SGOT 23 U/L (<32); Albumin 2.5 gm/dL (3.2-5.2); Albumin/Globulin Ratio 0.7 (1.0-2.3); Alkaline Phosphatase 83 U/L (39-117); Bilirubin,Total 0.3 mg/dL (0.1-1.0); Blood Urea Nitrogen 5 mg/dL (8-23); Calcium 8.6 mg/dL (8.6-10.4); Carbon Dioxide 28 mmol/L (22-30); Chloride 106 mmol/L (96-108); Globulin 3.5 gm/dL (2.2-3.7); Glomerular Filtration Rate 91; Glucose 138 mg/dL (70-105)
--- NOTE | 2021-05-12 09:26 | XRay Report ---
HISTORY: Follow-up small bowel obstruction FINDINGS: Most of the oral contrast administered yesterday has passed through the small intestine into the large intestine. The stomach is now empty. There is contrast extending from the cecum to the rectum. The large intestine is normal in caliber. There are still air-filled, dilated loops of small bowel in the mid and lower abdomen which measure up to 5 cm in diameter. Nasogastric tube remains in the body the stomach. IMPRESSION: Incomplete small bowel obstruction Interpreted and Authenticated by: Jimbo Canas 05/12/21
[2021-05-12] MEDS: DEXTROSE 5%-NS W/20MEQ KCL 1,000 ML IV SCH ×3 (10:15→22:02)
--- NOTE | 2021-05-12 13:14 | General Surgery Progress Note ---
SUBJECTIVE Subjective Patient information: Note initiated : 05/12/21 at 1:10 pm Service Date, if different from initiated Date: [] Patient: Ilda Byrd 71 y/o F admitted on 05/09/21 for abdominal pain. Chief Complaint: [Abdominal Pain ] She reports not much change today - isn't passing much gas and still feels distended. Had multiple large volume BMs yesterday with SBFT that demonstrated large volume contrast passage into the Colon but with substantial delay and proximal to mid SB distension and radiology interp of partial SBO. Constitutional Vitals: Vital Signs Temp Pulse Resp BP Pulse Ox 97.2 F 81 16 140/64 92 05/12/21 11:18 05/12/21 11:18 05/12/21 11:18 05/12/21 11:18 05/12/21 11:18 Period Temp Pulse Resp BP Sys/Wong Pulse Ox Last 24 Hr 97.2 F-98.7 F 76-83 15-20 133-149/62-66 90-93 Intake and Output 05/11/21 05/12/21 05/12/21 21:59 05:59 13:59 Intake Total 3619 978 9241 Output Total 1170 1300 275 Balance -70 -1130 775 Weight 115 lb 1.6 oz Intake & Output: Intake & Output 05/11/21 05/12/21 05/12/21 21:59 05:59 13:59 Intake Total 5145 318 7831 Output Total 1170 1300 275 Balance -70 -1130 775 Weight 115 lb 1.6 oz Intake: IV 1100 50 1050 Dextrose 5%-Ns W/20Meq KCl 1, 1000 1000 000 ml @ 100 mls/hr IV .Q10H GI[facility]GIO Rx#:[id number] Zosyn 3.375 gm In Dextrose 5% 100 50 50 in Water 50 ml @ 100 mls/hr IV Q6H GI[facility]GIO Rx#:[id number] Oral 120 Output: Gastric Drainage 770 900 Left Nare 770 900 Void Amount 50 Urine/Stool Mix 400 350 175 Stool 100 Other: Stool Size Moderate Small Small Stool Color Brown Brown Yellow Stool Consistency Liquid Liquid Liquid Loose Karina # Voids 1 # Unmeasured Emesis 150 # Bowel Movements 1 2 General appearance: cooperative and no acute distress Head Head exam: Present atraumatic and normocephalic Respiratory Respiratory exam: Present normal respiratory exam Cardiovascular Cardiovascular exam: Present normal rate and rhythm and RRR GI/Abdominal GI/Abdominal exam: Present soft Additional comments: belly remains somewhat distended but soft and essentially non tender A/P Narrative A/P Narrative: Findings on SBFT reviewed with her She appears to have a persistent mechanical issue although I cannot entirely rule out a narcotic related ileus Options are discussed at length including surgery, allowing for additional time with bowel rest and decompression as well as NGT removal with initiation of clear liquid diet She would like to go ahead with surgery at this time and is aware of relevant issues including a full discussion of Risks, Benefits, Potential Complications and Alternative Treatment Options with specific discussion regarding risk of bowel injury, negative exploration, bowel resection, unexpected findings, not improved with surgery and other issues as well Our plan tomorrow will be Diagnostic Laparoscopy with further mgmt including possible Exploratory Laparotomy dependent upon findings Time Spent With Patient Time: Total time spent is greater than 50% in coordination of care (as documented) at patient's floor/unit and/or counseling patient:
[2021-05-13] MEDS: morphine 4 MG/ML VIAL IV PRN ×3 (02:06→10:35)
[2021-05-13] MEDS: PIPERACILLIN SODIUM/TAZOBACTAM 3.375 GM in DEXTROSE 5% IN WATER 50 ML IV SCH ×3 (05:32→17:13)
[2021-05-13] MEDS: DEXTROSE 5%-NS W/20MEQ KCL 1,000 ML IV SCH ×4 (05:37→17:01)
[2021-05-13] MEDS: 0.9 % SODIUM CHLORIDE 10 ML SYRINGE IV SCH ×3 (05:38→22:09)
[2021-05-13] MEDS ORDERED: IPRATROPIUM/ALBUTEROL 3 ML AMPUL.NEB NEB PRN ×4 (07:00→16:44)
[2021-05-13] MEDS ORDERED: SCOPOLAMINE 1 PATCH PATCH TOPICAL PRN ×2 (07:00→16:44)
[2021-05-13 07:01] LABS: Hematocrit 35.1 % (34.1-44.9); Hemoglobin 10.7 g/dL (11.2-15.7); Mean Cell Volume 75.8 fL (80.0-100.0); Mean Corpuscular HGB Conc 30.5 g/dL (31.0-36.0); Platelet Count 410 K/mcL (140-440); RBC 4.63 M/mcL (3.59-5.38); Red Cell Distribution Width 23.1 % (11.5-14.5); WBC 17.1 K/mcL (4.5-11.0)
[2021-05-13 07:36] LABS: Blood Urea Nitrogen 5 mg/dL (8-23); Calcium 8.9 mg/dL (8.6-10.4); Carbon Dioxide 26 mmol/L (22-30); Chloride 104 mmol/L (96-108); Glomerular Filtration Rate 87; Glucose 125 mg/dL (70-105)
--- NOTE | 2021-05-13 10:42 | EKG ---
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
[2021-05-13] MEDS ORDERED: PHENYLephrine 1 MG/10 ML SYRINGE (ANEST) ONE (11:47)
[2021-05-13] MEDS ORDERED: ROCURONIUM 10 MG/ML ML IV ONE (11:47)
[2021-05-13] MEDS ORDERED: HYDROmorphone 1 MG/ML SYRINGE ONE (11:47)
[2021-05-13] MEDS ORDERED: SUGAMMADEX SODIUM 200 MG/2 ML VIAL IV ONE (11:47)
[2021-05-13] MEDS ORDERED: MAGNESIUM SULFATE 2 GM/50 ML BAG IV ONE (11:47)
[2021-05-13] MEDS ORDERED: PROPOFOL 200 MG/20 ML VIAL IV ONE (11:47)
[2021-05-13] MEDS ORDERED: ONDANSETRON 4 MG/2 ML VIAL ONE (11:47)
[2021-05-13] MEDS ORDERED: DEXAMETHASONE 10 MG/ML VIAL ONE (11:47)
[2021-05-13] MEDS ORDERED: KETAMINE 50 MG/ML Syringe (ANEST) IV ONE (11:47)
[2021-05-13] MEDS ORDERED: fentaNYL 250 MCG/5 ML VIAL IV ONE (11:47)
[2021-05-13] MEDS ORDERED: LIDOCAINE HCL/PF 100 MG/5 ML SYRINGE IV ONE (11:47)
[2021-05-13] MEDS ORDERED: 0.9 % SODIUM CHLORIDE 250 ML IV SCH ×2 (13:00→16:44)
[2021-05-13] MEDS ORDERED: CIPROFLOXACIN 400 MG/200 ML BAG IV ONE (13:19)
[2021-05-13] MEDS ORDERED: metroNIDAZOLE 500 MG/100 ML BAG IV ONE (13:20)
[2021-05-13] MEDS ORDERED: BUPIVACAINE W/EPI 0.5% 50 ML VIAL IJ ONE (14:36)
[2021-05-13] MEDS ORDERED: fentaNYL 100 MCG/2 ML VIAL IV PRN ×2 (15:15→16:44)
[2021-05-13] MEDS ORDERED: ONDANSETRON 4 MG/2 ML VIAL IV PRN ×3 (15:15→16:44)
[2021-05-13] MEDS ORDERED: LACTATED RINGERS 1,000 ML IV SCH ×2 (15:15→16:44)
[2021-05-13] MEDS ORDERED: HYDROmorphone 0.5 MG/0.5 ML SYRINGE IV PRN ×2 (15:15→16:44)
[2021-05-13] MEDS ORDERED: ACETAMINOPHEN 800 MG/80 ML BAG IV ONE (15:15)
[2021-05-13] MEDS ORDERED: LACTATED RINGERS 250 ML IV PRN ×2 (15:15→16:44)
[2021-05-13] MEDS ORDERED: PROMETHAZINE 25 MG/ML VIAL IV PRN ×2 (15:15→16:44)
[2021-05-13] MEDS ORDERED: diphenhydrAMINE 50 MG/ML VIAL IV PRN ×2 (15:15→16:44)
[2021-05-13] MEDS ORDERED: NALOXONE HCL 0.4 MG/ML VIAL IV PRN ×2 (15:15→16:44)
[2021-05-13] MEDS: MEPERIDINE 25 MG/ML VIAL IV PRN ×2 (16:16→16:21)
[2021-05-13] MEDS ORDERED: MEPERIDINE 25 MG/ML VIAL IV PRN (16:44)
[2021-05-13] MEDS ORDERED: morphine 4 MG/ML VIAL IV PRN (16:44)
[2021-05-13] MEDS ORDERED: DIATRIZOATE MEGLU/DIATRIZO SOD 120 ML BOTTLE PO ONE (16:44)
[2021-05-13] MEDS ORDERED: BENZOCAINE 1 SPRAY BOTTLE TOPICAL SCH (16:44)
[2021-05-13] MEDS ORDERED: HYDROmorphone PCA 30 MG/30 ML PCA.VIAL IV PRN (17:58)
[2021-05-13] MEDS ORDERED: HYDROmorphone 1 MG/ML SYRINGE IV PRN (18:02)
[2021-05-13] MEDS ORDERED: HYDROmorphone 0.5 MG/0.5 ML SYRINGE ONE ×2 (18:38→18:44)
--- NOTE | 2021-05-13 19:48 | Brief Operative Note ---
Brief Operative Note Date of procedure: 05/13/21 Pre-op diagnosis: Persistent partial SBO Post-op diagnosis: other (SBO with pelvic abscess) Procedure: diagnostic laparoscopy followed by open exploration, extensive lysis of adhesions, drainage of pelvic abscess, small bowel resection, washout and drain placement Grafts/Implants: No Anesthesia: GETA Findings: severe adhesions with pelvic abscess and associated SBO Complications: none Surgeon: Shiv Covarrubias Bar Steward: Alo Sommer Estimated blood loss (cc): 200 Specimens Removed/Pathology: other (Resected small bowel; omental nodule; culture of abscess) Condition: stable Disposition: PACU
--- NOTE | 2021-05-13 19:57 | General Surgery Progress Note ---
SUBJECTIVE Subjective Patient information: Note initiated : 05/13/21 at 1145 Service Date, if different from initiated Date: [] Patient: Ilda Byrd 71 y/o F admitted on 05/09/21 for abdominal pain. Chief Complaint: refractory SBO issues are reviews once again and have been discussed at length with her and her . she continues to deny passage of gas or stool and wishes to proceed to the OR today. Constitutional Vitals: Vital Signs Temp Pulse Resp BP Pulse Ox 98.2 F 73 9 L 121/76 95 05/13/21 17:01 05/13/21 19:01 05/13/21 19:01 05/13/21 19:01 05/13/21 19:01 Period Temp Pulse Resp BP Sys/Wong Pulse Ox Last 24 Hr 97.6 F-99.9 F 68-81 9-26 106-151/48-76 90-99 Intake and Output 05/13/21 05/13/21 05/13/21 05:59 13:59 21:59 Intake Total 140 1100 2580 Output Total 850 600 Balance -710 1100 1979 Weight 115 lb 4 oz Patient Weight 05/14/21 05:59 Weight 115 lb 4 oz Intake & Output: Intake & Output 05/13/21 05/13/21 05/13/21 05:59 13:59 21:59 Intake Total 140 1100 2580 Output Total 850 600 Balance -710 1100 1980 Weight 115 lb 4 oz Intake: IV 50 1100 430 Dextrose 5%-Ns W/20Meq KCl 1, 1000 000 ml @ 100 mls/hr IV .Q10H GIORGIO Rx#:[id number] Zosyn 3.375 gm In Dextrose 5% 50 100 50 in Water 50 ml @ 100 mls/hr IV Q6H GIORGIO Rx#:[id number] Oral 90 IV - Manual Only 2150 Output: Gastric Drainage 750 Left Nare 750 Drainage 100 Left Abdomen WERO Drain 50 Left Lower Abdomen WERO Drain 50 Urine Catheter Amount 350 Void Amount 100 Estimated Blood Loss 150 Other: Urine Appearance Cloudy Urine Color [place] Urine Odor Normal General appearance: no acute distress Respiratory Additional comments: no issue or distress Cardiovascular Cardiovascular exam: Present RRR GI/Abdominal Additional comments: remains distended but only minimally tender NGT in place A/P Narrative A/P Narrative: Refractory SBO Options have been thoroughly reviewed including continued non operative mgmt, transfer to a higher level of care, and ooerative intervention with all of its attendant risk and full review of Risks, Benefits, Potential Complications and Alternative Treatment Options as discussed Will proceed to the OR later today for treatment of Refractory presumed adhesion related SBO Time Spent With Patient Time: Total time spent is greater than 50% in coordination of care (as documented) at patient's floor/unit and/or counseling patient:
[2021-05-13] MEDS: HYDROmorphone 1 MG/ML SYRINGE IV PRN (22:09)
[2021-05-13] MEDS ORDERED: CIPROFLOXACIN 400 MG/200 ML BAG IV SCH (23:00)
[2021-05-13] MEDS: CIPROFLOXACIN 400 MG/200 ML BAG IV SCH (23:05)
[2021-05-14] MEDS: HYDROmorphone 1 MG/ML SYRINGE IV PRN ×5 (00:14→07:10)
[2021-05-14] MEDS: PIPERACILLIN SODIUM/TAZOBACTAM 3.375 GM in DEXTROSE 5% IN WATER 50 ML IV SCH ×4 (01:09→19:06)
[2021-05-14] MEDS: DEXTROSE 5%-NS W/20MEQ KCL 1,000 ML IV SCH ×2 (03:52→14:30)
[2021-05-14] MEDS ORDERED: 0.9 % SODIUM CHLORIDE 500 ML IV ONE (04:14)
[2021-05-14] MEDS: 0.9 % SODIUM CHLORIDE 10 ML SYRINGE IV SCH ×3 (06:02→22:35)
[2021-05-14 06:37] LABS: Hematocrit 33.3 % (34.1-44.9); Hemoglobin 9.8 g/dL (11.2-15.7); Mean Cell Volume 75.7 fL (80.0-100.0); Mean Corpuscular HGB Conc 29.4 g/dL (31.0-36.0); Mean Platelet Volume 10.3 fL (7.4-10.4); Platelet Count 422 K/mcL (140-440); Red Cell Distribution Width 22.4 % (11.5-14.5); WBC 23.6 K/mcL (4.5-11.0)
[2021-05-14 07:03] LABS: Blood Urea Nitrogen 8 mg/dL (8-23); Calcium 7.9 mg/dL (8.6-10.4); Carbon Dioxide 28 mmol/L (22-30); Chloride 106 mmol/L (96-108); Glomerular Filtration Rate 91; Glucose 145 mg/dL (70-105)
[2021-05-14] MEDS: HYDROmorphone PCA 30 MG/30 ML PCA.VIAL IV PRN (09:17)
[2021-05-14] MEDS: 0.9 % SODIUM CHLORIDE 250 ML IV SCH (09:17)
[2021-05-14] MEDS: CIPROFLOXACIN 400 MG/200 ML BAG IV SCH ×2 (09:51→21:16)
[2021-05-14] MEDS ORDERED: TPN PER PHARMACY IV SCH (11:30)
[2021-05-14] MEDS ORDERED: DEXTROSE 50% 50 ML VIAL IV PRN (12:42)
[2021-05-14] MEDS ORDERED: CALCIUM GLUCONATE 5 MEQ, MAGNESIUM SULFATE 8.12 MEQ, SODIUM CHLORIDE 20 MEQ, POTASSIUM ... IV SCH (14:00)
[2021-05-14] MEDS ORDERED: NALOXONE HCL 0.4 MG/ML VIAL IV ONE (14:06)
[2021-05-14] MEDS ORDERED: NALOXONE HCL 0.4 MG/ML VIAL IV PRN (14:09)
[2021-05-14] MEDS ORDERED: ONDANSETRON 4 MG/2 ML VIAL IV PRN (14:10)
[2021-05-14] MEDS ORDERED: SENNOSIDES 1 TABLET PO PRN (14:10)
[2021-05-14] MEDS ORDERED: LACTULOSE 20 GM/30 ML ORAL.SOL PO PRN (14:10)
[2021-05-14] MEDS: 0.9 % SODIUM CHLORIDE 1,000 ML IV SCH (14:28)
[2021-05-14 14:43] LABS: Prealbumin 8.1 mg/dL (20.0-40.0)
[2021-05-14 14:44] LABS: ALT/SGPT 12 U/L (<40); AST/SGOT 16 U/L (<32); Albumin 2.4 gm/dL (3.2-5.2); Albumin/Globulin Ratio 0.8 (1.0-2.3); Alkaline Phosphatase 70 U/L (39-117); Bilirubin,Direct < 0.2 mg/dL (0-0.3); Bilirubin,Total 0.4 mg/dL (0.1-1.0); Blood Urea Nitrogen 7 mg/dL (8-23); Calcium 8.1 mg/dL (8.6-10.4); Carbon Dioxide 28 mmol/L (22-30); Chloride 103 mmol/L (96-108); Globulin 3.1 gm/dL (2.2-3.7); Glomerular Filtration Rate 97; Glucose 110 mg/dL (70-105); Lactate Dehydrogenase 144 U/L (135-225); Phosphorous 2.1 mg/dL (2.5-4.5); Triglycerides 65 mg/dL (<150); Uric Acid 1.8 mg/dL (2.5-8.0)
[2021-05-14] MEDS ORDERED: FAT EMULSION 20% 250 ML in PREMIX 1 BAG IV SCH (16:00)
[2021-05-14] MEDS: INSULIN LISPRO 1 UNIT/0.01 ML UNIT SQ SCH (19:06)
--- NOTE | 2021-05-14 19:52 | General Surgery Progress Note ---
SUBJECTIVE Subjective Patient information: Note initiated : 05/14/21 at 1130 Service Date, if different from initiated Date: [] Patient: Ilda Byrd 71 y/o F admitted on 05/09/21 for abdominal pain. Chief Complaint: [POD #1 Ex Lap, Extensive DOROTHY, SB Resection and Drainage of Pelvic Intra Abdominal Abscess ] Pain control continues to be an issue this am but GRIEVANCE MANAGER is just now up and running with addition of a basal rate. Her is at the bedside as well. Findings in yesterdays operation were reviewed. Constitutional Vitals: Vital Signs Temp Pulse Resp BP Pulse Ox 97.1 F 67 21 98/86 100 05/14/21 16:00 05/14/21 06:02 05/14/21 18:00 05/14/21 18:00 05/14/21 18:00 Period Temp Pulse Resp BP Sys/Wong Pulse Ox Last 24 Hr 96.7 F-98.5 F 65-76 8-26 98-168/54-86 91-100 Intake and Output 05/14/21 05/14/21 05/14/21 05:59 13:59 21:59 Intake Total 0290 112 4402 Output Total 442 420 429 Balance 1308 -170 621 Weight 103 lb 6.4 oz Patient Weight 05/15/21 05:59 Weight 103 lb 6.4 oz Intake & Output: Intake & Output 05/14/21 05/14/21 05/14/21 05:59 13:59 21:59 Intake Total 6872 620 1863 Output Total 442 420 429 Balance 1308 -170 621 Weight 103 lb 6.4 oz Intake: IV 9712 152 2814 Sodium Chloride 0.9% 500 ml @ 500 Wide Open IV BOLUS ONE Rx#: [id number] Dextrose 5%-Ns W/20Meq KCl 1, 1000 1000 000 ml @ 100 mls/hr IV .Q10H GIORGIO Rx#:[id number] Zosyn 3.375 gm In Dextrose 5% 50 50 50 in Water 50 ml @ 100 mls/hr IV Q6H GIORGIO Rx#:[id number] Tube Feeding 0 Output: Gastric Drainage 200 60 Left Nare 200 60 Drainage 100 110 Left Abdomen B 50 70 Right Abdomen A 50 40 Drainage 165 Left Abdomen B 75 Right Abdomen A 90 Urine Catheter Amount 142 310 204 Other: Urine Appearance Clear Clear Clear Uretheral (Ruiz) Clear Urine Color Light Lupe Dark Yellow Bright Yellow Uretheral (Ruiz) Light [place] Urine Odor Normal General appearance: no acute distress Exam: she seems fully alert and able to converse Head Head exam: Present atraumatic and normocephalic Respiratory Respiratory exam: Present normal respiratory exam; Absent respiratory distress Cardiovascular Cardiovascular exam: Present normal rate and rhythm and RRR GI/Abdominal Additional comments: binder in place, dressings are serosang and benign in appea jose armando, dressings have been changed Additional comments: ruiz in place, light brisk urine Neurological Exam Neurological exam: Present oriented X3 A/P Narrative A/P Narrative: POD #1 Ex Lap, Extensive DOROTHY, SB resection and drainage of pelvic intra abdominal abscess with washout and drain placement Doing reasonably well at this point Will add TPN along with DVT and Ulcer prophylaxis Bedside chair if able 1-2 times today VAC placement on midline wound Sunday Continue broad spectrum IV ABs and NGT decomopression with bowel rest for now as well Time Spent With Patient Time: Total time spent is greater than 50% in coordination of care (as documented) at patient's floor/unit and/or counseling patient:
[2021-05-14] MEDS ORDERED: 0.9 % SODIUM CHLORIDE 10 ML SYRINGE IV SCH (22:00)
[2021-05-14] MEDS: DOCUSATE SODIUM 100 MG CAPSULE PO SCH (22:22)
[2021-05-14] MEDS: HEPARIN 5,000 UNIT/ML VIAL SQ SCH (22:34)
[2021-05-15] MEDS: PIPERACILLIN SODIUM/TAZOBACTAM 3.375 GM in DEXTROSE 5% IN WATER 50 ML IV SCH ×4 (00:03→17:34)
[2021-05-15] MEDS: 0.9 % SODIUM CHLORIDE 250 ML IV SCH ×2 (01:58→20:40)
[2021-05-15] MEDS: 0.9 % SODIUM CHLORIDE 1,000 ML IV SCH ×3 (03:51→22:46)
[2021-05-15] MEDS: INSULIN LISPRO 1 UNIT/0.01 ML UNIT SQ SCH ×4 (05:56→17:33)
[2021-05-15] MEDS: 0.9 % SODIUM CHLORIDE 10 ML SYRINGE IV SCH ×4 (05:57→22:34)
[2021-05-15 06:46] LABS: Basophils # (Auto) 0.05 K/mcL (0.00-0.30); Basophils % (Auto) 0.3 % (0.0-2.0); Eosinophils # (Auto) 0.08 K/mcL (0.00-0.70); Eosinophils % (Auto) 0.5 % (0.0-7.0); Hematocrit 32.6 % (34.1-44.9); Hemoglobin 9.6 g/dL (11.2-15.7); Mean Corpuscular HGB Conc 29.4 g/dL (31.0-36.0); Monocytes # (Auto) 1.36 K/mcL (0.10-0.90); Monocytes % (Auto) 8.7 % (1.0-12.0); Neutrophils % (Auto) 83.5 % (38.0-78.0); Platelet Count 388 K/mcL (140-440); RBC 4.29 M/mcL (3.59-5.38); Red Cell Distribution Width 22.2 % (11.5-14.5); WBC 15.6 K/mcL (4.5-11.0)
[2021-05-15 07:10] LABS: ALT/SGPT 11 U/L (<40); AST/SGOT 14 U/L (<32); Albumin 2.3 gm/dL (3.2-5.2); Albumin/Globulin Ratio 0.8 (1.0-2.3); Alkaline Phosphatase 69 U/L (39-117); Bilirubin,Direct < 0.2 mg/dL (0-0.3); Bilirubin,Total 0.3 mg/dL (0.1-1.0); Blood Urea Nitrogen 7 mg/dL (8-23); Calcium 7.9 mg/dL (8.6-10.4); Carbon Dioxide 27 mmol/L (22-30); Chloride 103 mmol/L (96-108); Glomerular Filtration Rate 97; Glucose 98 mg/dL (70-105); Lactate Dehydrogenase 134 U/L (135-225); Phosphorous 1.7 mg/dL (2.5-4.5); Triglycerides 70 mg/dL (<150); Uric Acid 1.6 mg/dL (2.5-8.0)
[2021-05-15 07:11] LABS: Blood Urea Nitrogen 9 mg/dL (8-23); Calcium 7.8 mg/dL (8.6-10.4); Carbon Dioxide 27 mmol/L (22-30); Chloride 102 mmol/L (96-108); Glomerular Filtration Rate 97; Glucose 98 mg/dL (70-105)
[2021-05-15] MEDS: PANTOPRAZOLE 40 MG VIAL IV SCH ×2 (07:15→17:31)
[2021-05-15] MEDS: DOCUSATE SODIUM 100 MG CAPSULE PO SCH ×2 (09:15→22:33)
[2021-05-15] MEDS: CIPROFLOXACIN 400 MG/200 ML BAG IV SCH ×2 (09:21→22:39)
--- NOTE | 2021-05-15 09:21 | General Surgery Progress Note ---
SUBJECTIVE Subjective Patient information: Note initiated : 05/15/21 at 9:15 am Service Date, if different from initiated Date: [] Patient: Ilda Byrd 71 y/o F admitted on 05/09/21 for abdominal pain. Chief Complaint: [POD #2 Ex Lap, Extensive DOROTHY, SB Resection and Drainage Intra Abdominal Pelvic Abscess] Ilad feels better this am with improved pain control. Tolerating TPN well. Constitutional Vitals: Vital Signs Temp Pulse Resp BP Pulse Ox 98 F 79 31 H 162/75 98 05/15/21 08:01 05/15/21 05:38 05/15/21 09:01 05/15/21 09:01 05/15/21 09:01 Period Temp Pulse Resp BP Sys/Wong Pulse Ox Last 24 Hr 97.1 F-98.3 F 79-79 11- 98-172/57-88 86-100 Intake and Output 05/14/21 05/15/21 05/15/21 21:59 05:59 13:59 Intake Total 1100 1750 50 Output Total 664 425 235 Balance 436 1325 -185 Weight 105 lb Intake & Output: Intake & Output 05/14/21 05/15/21 05/15/21 21:59 05:59 13:59 Intake Total 1100 1750 50 Output Total 664 425 235 Balance 436 1325 -185 Weight 105 lb Intake: IV 1100 1750 50 Sodium Chloride 0.9% 1,000 ml @ 1000 80 mls/hr IV .[id number] GIORGIO Rx#: [id number] Sodium Chloride 0.9% 250 ml @ 250 15 mls/hr IV .[id number] GIORGIO Rx#: [id number] Dextrose 5%-Ns W/20Meq KCl 1, 1000 000 ml @ 100 mls/hr IV .Q10H GIORGIO Rx#:[id number] Intralipid 20% 250 ml In Premix 250 1 Bag @ 25 mls/hr IV TuThSa@ 1600 GIORGIO Rx#:[id number] Zosyn 3.375 gm In Dextrose 5% 100 50 50 in Water 50 ml @ 100 mls/hr IV Q6H GIORGIO Rx#:[id number] Output: Gastric Drainage 60 Left Nare 60 Drainage 90 45 Left Abdomen B 40 15 Right Abdomen A 50 30 Drainage 165 Left Abdomen B 75 Right Abdomen A 90 Urine Catheter Amount 349 320 235 Void Amount 60 Other: Urine Appearance Clear Clear Clear Urine Color Dark Yellow Dark Yellow Bright Yellow Urine Odor Normal Normal General appearance: no acute distress Head Head exam: Present atraumatic and normocephalic Respiratory Respiratory exam: Absent respiratory distress Additional comments: normal respiratory effort Cardiovascular Cardiovascular exam: Present normal rate and rhythm and RRR GI/Abdominal Additional comments: binder in place, drains appear serosang benign, soft and flat Additional comments: ruiz in place with light brisk urine A/P Narrative A/P Narrative: POD #2 Ex lap, Extensive DOROTHY, SB Resection, Drainage of Intra Abdominal Pelvic Abscess Doing Well Resume home inhaler VAC tomorrow Continue TPN, NGT, bowel rest, IV ABs for now Time Spent With Patient Time: Total time spent is greater than 50% in coordination of care (as documented) at patient's floor/unit and/or counseling patient:
[2021-05-15] MEDS: HEPARIN 5,000 UNIT/ML VIAL SQ SCH ×2 (09:22→22:40)
[2021-05-15] MEDS: BREO ELLIPTA INH SCH ×2 (10:00→10:57)
[2021-05-15] MEDS ORDERED: HEPARIN SODIUM,PORCINE/PF 500 UNIT/5 ML SYRINGE IV ONE (11:04)
[2021-05-15] MEDS ORDERED: MAGNESIUM SULFATE IV SCH (14:00)
[2021-05-15] MEDS ORDERED: [UNRECOGNIZED DRUG - OTHER] IV SCH (14:00)
[2021-05-15] MEDS ORDERED: SODIUM CHLORIDE IV SCH (14:00)
[2021-05-15] MEDS ORDERED: CALCIUM GLUCONATE IV SCH (14:00)
[2021-05-15] MEDS: HYDROmorphone PCA 30 MG/30 ML PCA.VIAL IV PRN (16:26)
[2021-05-16] MEDS: PIPERACILLIN SODIUM/TAZOBACTAM 3.375 GM in DEXTROSE 5% IN WATER 50 ML IV SCH ×4 (00:05→17:36)
[2021-05-16] MEDS: INSULIN LISPRO 1 UNIT/0.01 ML UNIT SQ SCH ×4 (00:05→17:46)
[2021-05-16] MEDS: 0.9 % SODIUM CHLORIDE 10 ML SYRINGE IV SCH ×5 (05:18→21:32)
[2021-05-16 07:43] LABS: ALT/SGPT 10 U/L (<40); AST/SGOT 15 U/L (<32); Albumin 2.2 gm/dL (3.2-5.2); Albumin/Globulin Ratio 0.6 (1.0-2.3); Alkaline Phosphatase 92 U/L (39-117); Bilirubin,Direct 0.4 mg/dL (<0.3); Bilirubin,Total 0.8 mg/dL (0.1-1.0); Blood Urea Nitrogen 9 mg/dL (8-23); Calcium 8.4 mg/dL (8.6-10.4); Carbon Dioxide 26 mmol/L (22-30); Chloride 96 mmol/L (96-108); Globulin 3.7 gm/dL (2.2-3.7); Glomerular Filtration Rate 91; Glucose 127 mg/dL (70-105); Lactate Dehydrogenase 160 U/L (135-225); Phosphorous 2.6 mg/dL (2.5-4.5); Triglycerides 75 mg/dL (<150); Uric Acid 1.1 mg/dL (2.5-8.0)
[2021-05-16] MEDS: PANTOPRAZOLE 40 MG VIAL IV SCH ×2 (07:46→17:36)
--- NOTE | 2021-05-16 08:42 | General Surgery Progress Note ---
SUBJECTIVE Subjective Patient information: Note initiated : 05/16/21 at 8:36 am Service Date, if different from initiated Date: [] Patient: Ilda Byrd 71 y/o F admitted on 05/09/21 for abdominal pain. Chief Complaint: [POD #3 Ex Lap, Extensive DOROTHY, SB Resection, Drainage Intra Abdominal Pelvic Abscess with washout and drain placement] Sitting up in a chair and feeling quite well with good pain control this AM. No flatus yet. Constitutional Vitals: Vital Signs Temp Pulse Resp BP Pulse Ox 98.9 F 84 22 140/69 96 05/16/21 08:00 05/15/21 19:19 05/16/21 08:00 05/16/21 08:00 05/16/21 08:23 Period Temp Pulse Resp BP Sys/Wong Pulse Ox Last 24 Hr 98.1 F-99.5 F 84 14- 112-183/51-90 91-98 Intake and Output 05/15/21 05/16/21 05/16/21 21:59 05:59 13:59 Intake Total 300 784 50 Output Total 1725 1770 Balance -1425 -986 50 Weight 105 lb 12.8 oz Intake & Output: Intake & Output 05/15/21 05/16/21 05/16/21 21:59 05:59 13:59 Intake Total 300 784 50 Output Total 1725 1770 Balance -1425 -986 50 Weight 105 lb 12.8 oz Intake: IV 300 784 50 Sodium Chloride 0.9% 1,000 ml @ 534 50 mls/hr IV .Q20H GIORGIO Rx#: [id number] Sodium Chloride 0.9% 250 ml @ 250 15 mls/hr IV .[id number] GIORGIO Rx#: [id number] Zosyn 3.375 gm In Dextrose 5% 50 50 50 in Water 50 ml @ 100 mls/hr IV Q6H GIORGIO Rx#:[id number] Tube Feeding 0 Output: Gastric Drainage 200 Left Nare 200 Drainage 245 95 Left Abdomen B 95 40 Right Abdomen A 150 55 Urine Catheter Amount 1480 1475 Other: Urine Appearance Clear Clear Urine Color Straw Pale Urine Odor Normal General appearance: no acute distress Head Head exam: Present atraumatic and normocephalic Respiratory Respiratory exam: Absent accessory muscle use, respiratory distress and stridor Cardiovascular Cardiovascular exam: Present normal rate and rhythm and RRR GI/Abdominal Additional comments: dressings in place, drains remains serous, binder in place, NGT functional Neurological Exam Neurological exam: Present oriented X3 A/P Narrative A/P Narrative: POD #3 Ex Lap, Extensive DOROTHY, SB Resection, Drainage Intra Abdominal Pelvic Abscess with washout and drain placement Doing Well at this point Continue current ABs along with NGT, bowel rest, TPN and other supportive measures Check drain amylase levels and gs/culture results as a precaution VAC today Continue ICU for now Time Spent With Patient Time: Total time spent is greater than 50% in coordination of care (as documented) at patient's floor/unit and/or counseling patient:
--- NOTE | 2021-05-16 08:58 | Operative Note ---
DATE OF OPERATION: 05/13/2021 PREOPERATIVE DIAGNOSIS: Refractory small bowel obstruction.. POSTOPERATIVE DIAGNOSES: 1. Refractory small bowel obstruction. 2. Dense and extensive intraperitoneal and pelvic adhesions. 3. Pelvic abscess. PROCEDURE PERFORMED: 1. Diagnostic laparoscopy with extensive lysis of adhesions. 2. Open exploratory laparotomy with extensive lysis of adhesions. 3. Drainage of pelvic intra-abdominal abscess. 4. Small bowel resection. 5. Washout and drain placement. SURGEON: Shiv Covarrubias M.D. EARLY CHILDHOOD SPECIAL EDUCATOR: Alo Sommer M.D. ANESTHESIA: General. PREOPERATIVE MEDICATIONS: 1. Zosyn 3.375 grams IV. 2. Cipro 400 mg IV. 3. Flagyl 500 mg IV. INDICATIONS FOR PROCEDURE: The patient is a 71-year-old female who was admitted to the hospital roughly 4 days ago from the emergency room at [facility] with symptoms consistent with a bowel obstruction. Of note, she had a several-week period and history of worsening of chronic back and abdominal malaise and discomfort. Her pain had become very severe. She had been seen in the emergency room prior to this visit and ultimately sent home and then returned with a severe increase in abdominal pain and discomfort. CT scans at that time demonstrated findings consistent with a distended small bowel and a potential small-bowel obstruction. She also had extensive amounts of stool in the colon and some evidence of constipation. She was on high-dose narcotics chronically. We were asked to see her in consultation and agreed to admit her. At the time her abdomen was distended, but otherwise benign. She was not tachycardic, febrile, and did not have any other indications for emergent operative intervention. She was placed on IV antibiotics. NG tube was placed, and she was watched carefully and managed conservatively for several days with bowel rest, NG tube decompression, and IV resuscitation for presumed adhesion-related small-bowel obstruction given the prior intra-abdominal procedures she had done, albeit decades ago, but there was no other discernible etiology, reason for, and/or source of her bowel obstruction. On hospital day 3, we went ahead and performed a small bowel follow-through with water soluble contrast. This demonstrated delayed emptying from the stomach and out of the proximal mid small bowel, but ultimately voluminous amounts of contrast did empty into the right colon, and she had a multitude of large bowel movements that day as manifestation of this. Her abdomen, however, remained distended and did not improve. Followup x-rays confirmed this. The radiology-based diagnosis was high-grade partial small-bowel obstruction. We discussed options with her at length, including, but not limited to continued observational management with bowel rest and NG tube decompression versus proceeding to the operating room for operative exploration and intervention. She very much wished to expedite things and wanted to proceed to the operating room as quickly as possible once this was discussed as a potential option for her. We discussed with her and her at length over the course of a number of conversations risks, benefits, potential complications, and alternative treatment options. Issues discussed included, but were not limited to infection, bleeding, bowel injury, potential need for bowel resection, possible need for stomal diversion, the plan to start a laparoscopically hoping that she would just have a singular area of adhesion that we would be able to identify and sharply incise to free up her bowel versus conversion to open for more extensive procedure based on potential findings, issues such as anastomotic leak, drain placement, conversion to open, prolonged hospitalization, the option to not undergo surgery, and other issues were all discussed at length. She gave full informed consent and very much wished to undergo the procedure. PROCEDURE IN DETAIL: The patient was taken to the operating room and placed supine on the OR table, placed under general anesthesia and intubated. Bilateral SCDs were applied. All pressure sensitive areas were carefully padded. Arms were tucked at her side. When she was positioned comfortably on the OR table, the abdomen was then widely prepped and draped in a sterile fashion. Procedure began with accessing the peritoneal cavity utilizing a 0-degree 5-mm Visiport in the left upper quadrant. Adhesions were encountered once we entered the peritoneal cavity, but I did not identify any areas in close proximity to bowel. We were then able to confirm peritoneal access and established pneumoperitoneum with high-flow CO2 insufflation. Once we checked the area of access to make sure there was no evidence of injury and none was seen, we then changed out the 0-degree scope to 30-degree scope and placed an additional right upper abdominal working trocar and then an additional left mid abdominal working trocar. Then, with these three trocar placements including the camera port, I was able to go ahead and sharply dissect off the anterior abdominal wall extensive adhesions that were really carpeting this and preventing us from seeing or having any visualization of the bowel. Once these were all taken down, which took roughly a half an hour to 45 minutes, we then made preparations for further exploration. At this point, however, I was able to discern and visualize a tremendous amount of the small bowel seemed to be very adherent to and/or anchored in the pelvis and would not lend itself to any additional diagnostic exploration laparoscopically. Therefore, I felt at this point that things were more complicated than they previously appeared and that she likely would require conversion to an open procedure. To this end, we went ahead and swapped out our instruments and made preparations to open. Once we were ready, we went ahead and made a vertical midline incision, extending from several centimeters below the xiphoid process to past the umbilicus. We dissected down to the abdominal wall fascia, which was opened along the full length of the incision without difficulty and then sharply opened the peritoneum. Next, I went ahead and was able to begin obtaining exposure with handheld retraction, I was able to identify the ligament of Treitz. The bowel was quite distended and adhesions were extremely dense down to the pelvis. It took roughly a full hour to just completely mobilize the small bowel down to the elements that were entering the pelvis, and here I encountered dense adhesions and ultimately the eruption of a large chronic pelvic abscess around which the entire bowel appeared to be adhesed and adherent to this. This was medial to the sigmoid colon as it tapered down into the pelvis and into the rectum. It was not clear that it was related to the colon, but it was a substantial abscess in the pelvis and appeared to be the source of the obstruction of the small bowel that was entering the pelvis, appearing obstructed and exiting appearing completely decompressed roughly 20 cm proximal to the ileocecal valve. Working proximally and distally, we were gradually able to free up all the bowel and deliver it up out of the pelvis and away from the sigmoid colon. This was very difficult to do and tedious work given the severity of the adhesions, but gradually we were able to do it. One portion of small bowel that I calculated to be mid jejunum appeared to essentially be completely disrupted by the inflammatory process and perhaps was the site of a small bowel diverticular rupture or some other abnormality. It was not entirely clear, but we went ahead very quickly, utilizing a NICOLASA stapler, chose positions proximally and distally to transect this to exclude it from the intestinal stream and to minimize any additional spillage. We then took this segment out utilizing the LigaSure device on the small bowel mesentery, and it was sent to Pathology for permanent inspection without issue. This ultimately involved roughly 1 foot cm of mid small bowel. We then went ahead and ran the small bowel from ligament of Treitz all the way down to the terminal ileum. Several areas of mild deserosalization were encountered. They were oversewn with lemberted 3-0 silk sutures whenever discovered. We ran the bowel multiple times and did not continue to find any additional areas of deserosalization. No thermal energy had been used in any way, shape, or form at this point in the course of the dissection retroperitoneally, and so there was no substantial concerns regarding any thermal injury. We then went ahead and made preparations for a small bowel anastomosis. The distended proximal jejunum was brought alongside the decompressed distal portion of the jejunum, and we made preparations for a [id number] functional end-to-end stapled anastomosis. Enterotomies were made sharply on the antimesenteric staple lines. We then introduced two arms of the stapler into the lumen of the bowel, brought them alongside one another, and then went ahead and fired the stapler after assuring that the small bowel mesentery was out of the field. This created a [id number] functional end-to-end anastomosis. The enterotomy was then closed with an additional firing of the stapler without substantial difficulty. Next, we irrigated out extensively and made sure there was no active bleeding or hemorrhage. I went ahead and closed the mesenteric defect on the small bowel with interrupted 3-0 silk sutures. I spent quite a bit of time examining the sigmoid colon, checking it with external pressure with manual milking of intestinal contents down into that area, and then also filled up with saline to completely cover the sigmoid colon and then manipulated and expressed the area to see if there was any bubbling or any evidence of leak and none was seen. My working hypothesis at this point was that the pelvic abscess was either territory sales representative of a diverticular rupture off of the sigmoid colon or potentially off an isolated perforation or rupture of the small bowel related either to a foreign body, to diverticular rupture, to inflammatory bowel disease, or some other inciting event. Regardless, we did not see any evidence of an active leak in the sigmoid colon tapering to the rectum, and thus I elected to not perform any sort of diverting colostomy at this point. We irrigated out extensively. I made sure the NG tube was in correct position. Then, I brought a 15-Lithuanian round Ruy drains into the field through separate stab incisions in the right and left lower abdomen and positioned one alongside the anastomosis on the right side and the other in the left pelvis and adjacent to the medial portion of the sigmoid colon in the event of any potential diverticular leak or issue here, although again, none was seen despite vigorous inspection of the area. Scattered benign-appearing diverticular disease was seen, but there was no evidence of perforation or inflammation in and around any area of the sigmoid colon. We then made sure our sponge, needle, and instrument counts were correct. I asked that these be checked several times after carefully inspecting the area, making sure I did not see any evidence of any retained sponges or other abnormality, and the counts were correct. We irrigated out a final time, and then I closed the fascia from above and below with a running looped 0 PDS tied in the midline. The subcutaneous tissue was left open, given the purulent debris and extensive contamination of the pelvis and the pelvic abscess I elected to not close skin. It was packed open with a moist Kerlix and fluffs. The patient was then awakened, extubated, and transferred to PACU in satisfactory condition. No apparent complications or issues. Sponge, needle, and instrument counts were correct. Findings were as discussed above. Estimated blood loss was roughly 200 mL. Drains were two 15-Lithuanian Blakes. BW:keri Job ID: [id number] Doc ID: [id number] Shiv Covarrubias M.D.
[2021-05-16] MEDS ORDERED: NON FORMULARY MEDICATION 1 DOSE MISCELL (Fluticasone Furoate-Vilanterol [Breo Ellipta] 200 INHALATION SCH (09:00)
[2021-05-16] MEDS: CIPROFLOXACIN 400 MG/200 ML BAG IV SCH ×2 (09:06→20:03)
[2021-05-16] MEDS: HEPARIN 5,000 UNIT/ML VIAL SQ SCH ×2 (09:07→21:31)
[2021-05-16] MEDS: DOCUSATE SODIUM 100 MG CAPSULE PO SCH ×2 (09:07→21:30)
[2021-05-16] MEDS: BREO ELLIPTA INH SCH (09:08)
[2021-05-16] MEDS: 0.9 % SODIUM CHLORIDE 250 ML IV SCH ×2 (12:36→14:45)
[2021-05-16] MEDS: 0.9 % SODIUM CHLORIDE 1,000 ML IV SCH ×2 (12:36→20:08)
[2021-05-16] MEDS ORDERED: CALCIUM GLUCONATE 10 MEQ, MAGNESIUM SULFATE 16.24 MEQ, SODIUM CHLORIDE 80 MEQ, POTASSIU... IV SCH (14:00)
--- NOTE | 2021-05-16 14:29 | Surgical Pathology Report ---
Histology Microscopic Diagnosis Specimen A- OMENTUM, NODULE, EXCISION: --- CALCIFIED NODULE WITH ASSOCIATED CHRONIC INFLAMMATION. --- NO MALIGNANCY IDENTIFIED. (DMT:sln) IOC Diagnosis FROZEN SECTION DIAGNOSIS (Performed at [facility], [place], [place]) FSA - OMENTUM, NODULE, EXCISION: --- CALCIFIED NODULE WITH ASSOCIATED INFLAMMATION. --- NO MALIGNANCY IDENTIFIED. (DMT:sln) Gross Description Received fresh for frozen section consultation, labeled omental nodule, is a 4.3 x 2.3 x 0.7 cm segment of garcia yellow adipose tissue consistent with omentum. A 4.5 cm long staple and is present at one aspect. Within the central specimen is a 0.6 x 0.5 x 0.5 cm garcia-white, hard, calcified nodule. The external surface of the specimen is inked black. The stapled margin is inked blue. The specimen is serially sectioned and a personal financial representative cross section of the calcified nodule is submitted for frozen section consultation and resubmitted as A1. The remainder of the specimen is submitted as A2 and A3 (A2 with remainder of calcified nodule). (DMT) Microscopic Diagnosis Specimen B- SMALL INTESTINE, DISTAL, SEGMENTAL RESECTION: --- TWO LONG SEGMENTS OF SMALL INTESTINE: -- ACUTE AND CHRONIC SEROSITIS, ATTACHED FIBRINOPURULENT EXUDATE AND NUMEROUS SEROSAL ADHESIONS. -- MARGINS VIABLE. -- NO DIVERTICULAR DISEASE, ENTERITIS OR MALIGNANCY IDENTIFIED. --- SMALL FRAGMENT OF SMALL INTESTINE: -- VIABLE SMALL INTESTINE WITH CHRONIC SEROSITIS. (DMT) Gross Description Received in formalin designated as distal small bowel, are two segments of small intestine and a third portion of small intestine with attached suture. The largest segment of small intestine is 30 cm long and up to 3 cm in diameter. Each end margin is closed by a staple line. The external surface has a marked amount of garcia-white fibrinopurulent exudate with adhesions fusing together two loops of intestine. The segment is opened along its length to reveal a minimal amount garcia-green mucoid and fecal material. The mucosa has its usual plicated pattern and no mucosal lesions are identified. The bowel wall is on average 0.7 cm thick. The second largest segment of intestine is 25 cm long and up to 2.5 cm in diameter. The end margins are stapled closed. The segment consists of markedly adhesed loops of bowel covered by garcia-white exudate. Two stitches are present on the serosa of the central segment where two loops of bowel are adhesed together. The serosa in this area is roughened. No definite perforation is seen in this area. The segment is opened along its length and a minimal amount of garcia-brown mucoid material is seen. The mucosa has the usual plicated pattern and the wall is up to 0.6 cm thick. No mucosal mass lesions are identified within the segment. No diverticula or ulcers are found in either segment. The third and final segment consists of a portion of stapled mucosa that is 3.5 x 1.6 x 1.5 cm. The segment has an attached long black suture and the staple line is 4.8 cm long. The tissue in this segment is grossly viable. Title Search Manager sections are submitted as follows: B1 - end margins of largest described segment; B2 - bowel wall with serosal exudate of largest described segment; B3 - area of adhesed bowel loops of largest described segment; B4 - end margins of second largest described segment; B5 - cross sections of bowel wall adjacent to areas of suture and roughened serosa, second largest segment; B6 - additional cross section of two loops of adhesed bowel from second largest described segment; B7 - personal financial representative sections of mucosa from smallest described segment. (DMT:christine) Electronically Signed Jeff Phillips MD, FCAP Electronically Signed 05/16/2021 14:28
[2021-05-16] MEDS: HYDROmorphone PCA 30 MG/30 ML PCA.VIAL IV PRN (14:41)
[2021-05-17] MEDS: PIPERACILLIN SODIUM/TAZOBACTAM 3.375 GM in DEXTROSE 5% IN WATER 50 ML IV SCH ×5 (01:33→23:40)
[2021-05-17] MEDS: INSULIN LISPRO 1 UNIT/0.01 ML UNIT SQ SCH ×4 (01:49→17:42)
[2021-05-17] MEDS: 0.9 % SODIUM CHLORIDE 10 ML SYRINGE IV SCH ×5 (06:02→21:14)
[2021-05-17] MEDS: PANTOPRAZOLE 40 MG VIAL IV SCH ×2 (07:27→17:13)
[2021-05-17] MEDS: 0.9 % SODIUM CHLORIDE 250 ML IV SCH ×2 (07:29→14:55)
[2021-05-17 07:39] LABS: Hematocrit 30.6 % (34.1-44.9); Hemoglobin 9.3 g/dL (11.2-15.7); Mean Cell Volume 71.8 fL (80.0-100.0); Mean Corpuscular HGB Conc 30.4 g/dL (31.0-36.0); Mean Platelet Volume 9.7 fL (7.4-10.4); Platelet Count 323 K/mcL (140-440); RBC 4.26 M/mcL (3.59-5.38); Red Cell Distribution Width 21.5 % (11.5-14.5); WBC 10.8 K/mcL (4.5-11.0)
[2021-05-17 08:16] LABS: ALT/SGPT 9 U/L (<40); AST/SGOT 12 U/L (<32); Albumin 2.2 gm/dL (3.2-5.2); Albumin/Globulin Ratio 0.8 (1.0-2.3); Alkaline Phosphatase 97 U/L (39-117); Bilirubin,Direct 0.4 mg/dL (<0.3); Bilirubin,Total 0.6 mg/dL (0.1-1.0); Blood Urea Nitrogen 9 mg/dL (8-23); Carbon Dioxide 28 mmol/L (22-30); Chloride 99 mmol/L (96-108); Globulin 2.9 gm/dL (2.2-3.7); Glomerular Filtration Rate 104; Glucose 152 mg/dL (70-105); Lactate Dehydrogenase 113 U/L (135-225); Phosphorous 3.1 mg/dL (2.5-4.5); Triglycerides 77 mg/dL (<150); Uric Acid 1.1 mg/dL (2.5-8.0)
[2021-05-17 08:17] LABS: Prealbumin 9.4 mg/dL (20.0-40.0)
[2021-05-17] MEDS: DOCUSATE SODIUM 100 MG CAPSULE PO SCH ×2 (09:35→20:44)
[2021-05-17] MEDS: 0.9 % SODIUM CHLORIDE 1,000 ML IV SCH ×2 (09:38→14:56)
[2021-05-17] MEDS: CIPROFLOXACIN 400 MG/200 ML BAG IV SCH ×2 (09:42→21:00)
[2021-05-17] MEDS: HEPARIN 5,000 UNIT/ML VIAL SQ SCH ×2 (09:42→20:47)
[2021-05-17] MEDS: BREO ELLIPTA INH SCH (09:42)
--- NOTE | 2021-05-17 13:08 | General Surgery Progress Note ---
SUBJECTIVE Subjective Patient information: Note initiated : 05/17/21 at 1:03 pm Service Date, if different from initiated Date: [] Patient: Ilda Byrd 71 y/o F admitted on 05/09/21 for abdominal pain. Chief Complaint: [POD #4 Ex Lap, Extensive DOROTHY, SB Resection, Drainage Intra Abdominal Pelvic Abscess with washout and drainage] No gas yet and pain issues continue but comfortable overall. Feels ready for floor transfer. VAC in place. Constitutional Vitals: Vital Signs Temp Pulse Resp BP Pulse Ox 97.3 F 79 19 134/60 96 05/17/21 12:01 05/16/21 20:05 05/17/21 10:01 05/17/21 12:01 05/17/21 08:07 Period Temp Pulse Resp BP Sys/Wong Pulse Ox Last 24 Hr 97.1 F-98.7 F 79 14-48 90-145/33-106 88-98 Intake and Output 05/16/21 05/17/21 05/17/21 21:59 05:59 13:59 Intake Total 2727 300 50 Output Total 855 1481 810 Balance 1872 -1181 -760 Weight 115 lb 4.828 oz Intake & Output: Intake & Output 05/16/21 05/17/21 05/17/21 21:59 05:59 13:59 Intake Total 2727 300 50 Output Total 855 1481 810 Balance 1872 -1181 -760 Weight 115 lb 4.828 oz Intake: IV 2727 300 50 Sodium Chloride 0.9% 1,000 ml @ 1000 50 mls/hr IV .Q20H GIORGIO Rx#: [id number] Sodium Chloride 0.9% 250 ml @ 250 15 mls/hr IV .[id number] GIORGIO Rx#: [id number] Calcium Gluconate 10 Meq 1477 Magnesium Sulfate 16.24 Meq Sodium Chloride 40 Meq Potassium Chloride 40 Meq Infuvite Adult 10 ml Potassium Phosphate 40 Meq Sodium Phosphate 40 Mmol In Clinimix 5 %-20% Solution 2,000 ml @ 60 mls/hr IV Q24H GIORGIO Rx#: [id number] Zosyn 3.375 gm In Dextrose 5% 50 50 50 in Water 50 ml @ 100 mls/hr IV Q6H GIORGIO Rx#:[id number] Tube Feeding 0 Output: Gastric Drainage 0 50 Left Nare 0 50 Drainage 55 81 Left Abdomen B 25 37 Right Abdomen A 30 44 Drainage 0 Left Abdomen B 0 Right Abdomen A 0 Urine Catheter Amount 800 1350 810 Other: Urine Appearance Clear Clear Clear Uretheral ([place]) Clear Clear Clear Urine Color Straw Straw Bright Yellow Uretheral (Martell) Straw Straw Bright Yellow General appearance: no acute distress Exam: she looks well and fully conversant Head Head exam: Present atraumatic and normocephalic Respiratory Additional comments: no respiratory distress Cardiovascular Cardiovascular exam: Present RRR GI/Abdominal Additional comments: binder in place, drains appear benign, VAC in place and NGT functional with fairly low drainage Neurological Exam Neurological exam: Present oriented X3 A/P Narrative A/P Narrative: POD #4 Ex Lap, Extensive DOROTHY, SB Resection, Drainage Intra Abdominal Pelvic Abscess with washout and drainage Doing well overall Will D/C Martell Today and OK for floor transfer Change VAC tomorrow Await bowel function and continue TPN Time Spent With Patient Time: Total time spent is greater than 50% in coordination of care (as documented) at patient's floor/unit and/or counseling patient:
[2021-05-17] MEDS ORDERED: LIDOCAINE HCL/PF 100 MG/5 ML SYRINGE IV ONE (13:16)
[2021-05-17] MEDS ORDERED: PHENYLephrine 1 MG/10 ML SYRINGE (ANEST) ONE (13:16)
[2021-05-17] MEDS ORDERED: ONDANSETRON 4 MG/2 ML VIAL IV PRN (13:16)
[2021-05-17] MEDS ORDERED: ONDANSETRON 4 MG/2 ML VIAL ONE (13:16)
[2021-05-17] MEDS ORDERED: SUGAMMADEX SODIUM 200 MG/2 ML VIAL IV ONE (13:16)
[2021-05-17] MEDS ORDERED: SENNOSIDES 1 TABLET PO PRN (13:16)
[2021-05-17] MEDS ORDERED: TPN PER PHARMACY IV SCH (13:16)
[2021-05-17] MEDS ORDERED: DIATRIZOATE MEGLU/DIATRIZO SOD 120 ML BOTTLE PO ONE (13:16)
[2021-05-17] MEDS ORDERED: HYDROmorphone 1 MG/ML SYRINGE ONE (13:16)
[2021-05-17] MEDS ORDERED: BENZOCAINE 1 SPRAY BOTTLE TOPICAL SCH (13:16)
[2021-05-17] MEDS ORDERED: fentaNYL 250 MCG/5 ML VIAL IV ONE (13:16)
[2021-05-17] MEDS ORDERED: ROCURONIUM 10 MG/ML ML IV ONE (13:16)
[2021-05-17] MEDS ORDERED: NALOXONE HCL 0.4 MG/ML VIAL IV PRN (13:16)
[2021-05-17] MEDS ORDERED: DEXAMETHASONE 10 MG/ML VIAL ONE (13:16)
[2021-05-17] MEDS ORDERED: PROPOFOL 200 MG/20 ML VIAL IV ONE (13:16)
[2021-05-17] MEDS ORDERED: MAGNESIUM SULFATE 2 GM/50 ML BAG IV ONE (13:16)
[2021-05-17] MEDS ORDERED: KETAMINE 50 MG/ML Syringe (ANEST) IV ONE (13:16)
[2021-05-17] MEDS ORDERED: HYDROmorphone PCA 30 MG/30 ML PCA.VIAL IV PRN (13:16)
[2021-05-17] MEDS ORDERED: DEXTROSE 50% 50 ML VIAL IV PRN (13:16)
[2021-05-17] MEDS ORDERED: LACTULOSE 20 GM/30 ML ORAL.SOL PO PRN (13:16)
[2021-05-17] MEDS ORDERED: [UNRECOGNIZED DRUG - OTHER] IV SCH ×2 (14:00)
[2021-05-17] MEDS ORDERED: CALCIUM GLUCONATE 10 MEQ, MAGNESIUM SULFATE 16.24 MEQ, SODIUM CHLORIDE 80 MEQ, POTASSIU... IV SCH (14:00)
[2021-05-17] MEDS ORDERED: SODIUM CHLORIDE IV SCH ×2 (14:00)
[2021-05-17] MEDS ORDERED: CALCIUM GLUCONATE IV SCH ×2 (14:00)
[2021-05-17] MEDS ORDERED: MAGNESIUM SULFATE IV SCH ×2 (14:00)
[2021-05-17] MEDS: FAT EMULSION 20% 250 ML in PREMIX 1 BAG IV SCH (16:32)
[2021-05-18] MEDS: INSULIN LISPRO 1 UNIT/0.01 ML UNIT SQ SCH ×4 (00:02→18:17)
[2021-05-18] MEDS: 0.9 % SODIUM CHLORIDE 250 ML IV SCH ×3 (01:21→16:59)
[2021-05-18] MEDS: 0.9 % SODIUM CHLORIDE 10 ML SYRINGE IV SCH ×5 (04:27→20:23)
[2021-05-18] MEDS: PIPERACILLIN SODIUM/TAZOBACTAM 3.375 GM in DEXTROSE 5% IN WATER 50 ML IV SCH ×4 (05:18→20:21)
[2021-05-18] MEDS: PANTOPRAZOLE 40 MG VIAL IV SCH ×2 (07:43→18:15)
[2021-05-18 08:39] LABS: Hematocrit 39.8 % (34.1-44.9); Hemoglobin 11.8 g/dL (11.2-15.7); Mean Corpuscular HGB Conc 29.6 g/dL (31.0-36.0); Mean Platelet Volume 10.4 fL (7.4-10.4); Platelet Count 317 K/mcL (140-440); RBC 5.45 M/mcL (3.59-5.38); Red Cell Distribution Width 22.4 % (11.5-14.5); WBC 15.2 K/mcL (4.5-11.0)
[2021-05-18 08:45] LABS: Prealbumin 11.5 mg/dL (20.0-40.0)
[2021-05-18 09:21] LABS: ALT/SGPT 13 U/L (<40); AST/SGOT 53 U/L (<32); Albumin 2.8 gm/dL (3.2-5.2); Alkaline Phosphatase 121 U/L (39-117); Bilirubin,Direct 0.2 mg/dL (<0.3); Bilirubin,Total 0.5 mg/dL (0.1-1.0); Blood Urea Nitrogen 10 mg/dL (8-23); Calcium 8.5 mg/dL (8.6-10.4); Carbon Dioxide 23 mmol/L (22-30); Chloride 96 mmol/L (96-108); Globulin 2.9 gm/dL (2.2-3.7); Glomerular Filtration Rate 97; Glucose 112 mg/dL (70-105); Lactate Dehydrogenase 867 U/L (135-225); Phosphorous 3.5 mg/dL (2.5-4.5); Triglycerides 105 mg/dL (<150)
[2021-05-18] MEDS: HEPARIN 5,000 UNIT/ML VIAL SQ SCH ×2 (09:46→20:22)
[2021-05-18] MEDS: CIPROFLOXACIN 400 MG/200 ML BAG IV SCH ×2 (09:46→23:12)
[2021-05-18] MEDS: 0.9 % SODIUM CHLORIDE 1,000 ML IV SCH ×2 (10:23→17:00)
[2021-05-18] MEDS: DOCUSATE SODIUM 100 MG CAPSULE PO SCH ×2 (10:23→20:22)
[2021-05-18] MEDS: BREO ELLIPTA INH SCH (11:49)
[2021-05-18] MEDS ORDERED: MVI IV SCH (13:00)
[2021-05-18] MEDS ORDERED: CALCIUM GLUCONATE IV SCH (13:00)
[2021-05-18] MEDS ORDERED: SODIUM CHLORIDE IV SCH (13:00)
[2021-05-18] MEDS ORDERED: MAGNESIUM SULFATE IV SCH (13:00)
[2021-05-18] MEDS ORDERED: [UNRECOGNIZED DRUG - OTHER] IV SCH (13:00)
--- NOTE | 2021-05-18 13:01 | General Surgery Progress Note ---
SUBJECTIVE Subjective Patient information: Note initiated : 05/18/21 at 12:55 pm Service Date, if different from initiated Date: [] Patient: Ilda Byrd 71 y/o F admitted on 05/09/21 for abdominal pain. Chief Complaint: [POD #5 Ex Lap, Extensive DOROTHY, SB Resection, Drainage Intra Abdominal Pelvic Abscess with washout and drainage] She feels well today. No temps overnight. Has passed some gas and had a Small BM. NGT was lost in the middle of the night. Pain continues to be well controll ed Constitutional Vitals: Vital Signs Temp Pulse Resp BP Pulse Ox 97.9 F 85 20 124/51 93 05/18/21 08:00 05/18/21 08:00 05/18/21 08:00 05/18/21 08:00 05/18/21 08:00 Period Temp Pulse Resp BP Sys/Wong Pulse Ox Last 24 Hr 97.7 F-98.9 F 79-89 14-22 124-138/51-67 93-97 Intake and Output 05/17/21 05/18/21 05/18/21 21:59 05:59 13:59 Intake Total 3046 706 Output Total 235 1845 350 Balance 2811 -1139 -350 Weight 115 lb 4.828 oz Intake & Output: Intake & Output 05/17/21 05/18/21 05/18/21 21:59 05:59 13:59 Intake Total 3046 706 Output Total 235 1845 350 Balance 2811 -1139 -350 Weight 115 lb 4.828 oz Intake: IV 2926 706 Sodium Chloride 0.9% 1,000 ml @ 1000 50 mls/hr IV .Q20H GIORGIO Rx#: [id number] Sodium Chloride 0.9% 250 ml @ 152 156 15 mls/hr IV .[id number] GIORGIO Rx#: [id number] Calcium Gluconate 10 Meq 1474 Magnesium Sulfate 16.24 Meq Sodium Chloride 80 Meq Potassium Chloride 60 Meq Infuvite Adult 10 ml Potassium Phosphate 60 Meq Sodium Phosphate 60 Mmol In Clinimix 5 %-20% Solution 2,000 ml @ 60 mls/hr IV Q24H GIORGIO Rx#: [id number] Intralipid 20% 250 ml In Premix 250 1 Bag @ 25 mls/hr IV TuThSa@ 1600 GIORGIO Rx#:[id number] Zosyn 3.375 gm In Dextrose 5% 100 100 in Water 50 ml @ 100 mls/hr IV Q6H GIORGIO Rx#:[id number] Oral 120 Output: Gastric Drainage 35 Left Nare 35 Drainage 45 Left Abdomen B 15 Right Abdomen A 30 Void Amount 200 1800 350 Other: Urine Appearance Clear Clear Clear Urine Color Bright Yellow Dark Yellow Bright Yellow Stool Size Smear Stool Color Brown Green Stool Consistency Liquid General appearance: cooperative and no acute distress Head Head exam: Present atraumatic and normocephalic Respiratory Additional comments: no respiratory distress Cardiovascular Cardiovascular exam: Present normal rate and rhythm and RRR GI/Abdominal Additional comments: drains appear serous and benign, binder and VAC in place Extremities Exam Additional comments: mild bilateral LE pitting edema, otherwise well perfused A/P Narrative A/P Narrative: POD #5 Ex Lap, Extensive DOROTHY, SB Resection, Drainage Intra Abdominal Pelvic Abscess with washout and drainage Doing OK - K+ acute elevated, changing TPN and will start gentle BID diuresis as Total Body Volume is substantially elevated WBC increase concerning but in absence of other clinical change will re check tomorrow Change VAC today Family Care Conference later today Time Spent With Patient Time: Total time spent is greater than 50% in coordination of care (as documented) at patient's floor/unit and/or counseling patient:
[2021-05-18] MEDS: HYDROmorphone 1 MG/ML SYRINGE IV PRN ×3 (19:35→23:12)
[2021-05-18] MEDS: FUROSEMIDE 20 MG/2 ML VIAL IV SCH (20:22)
[2021-05-19] MEDS: INSULIN LISPRO 1 UNIT/0.01 ML UNIT SQ SCH ×4 (00:14→18:03)
[2021-05-19] MEDS: PIPERACILLIN SODIUM/TAZOBACTAM 3.375 GM in DEXTROSE 5% IN WATER 50 ML IV SCH ×4 (00:21→17:26)
[2021-05-19] MEDS: HYDROmorphone 1 MG/ML SYRINGE IV PRN ×10 (01:51→22:12)
[2021-05-19] MEDS: 0.9 % SODIUM CHLORIDE 10 ML SYRINGE IV SCH ×5 (05:28→22:11)
[2021-05-19] MEDS: 0.9 % SODIUM CHLORIDE 1,000 ML IV SCH (05:28)
[2021-05-19 06:32] LABS: Hematocrit 33.1 % (34.1-44.9); Hemoglobin 10.2 g/dL (11.2-15.7); Mean Cell Volume 73.1 fL (80.0-100.0); Mean Corpuscular HGB Conc 30.8 g/dL (31.0-36.0); Mean Platelet Volume 10.2 fL (7.4-10.4); Platelet Count 332 K/mcL (140-440); RBC 4.53 M/mcL (3.59-5.38); Red Cell Distribution Width 22.2 % (11.5-14.5); WBC 10.8 K/mcL (4.5-11.0)
[2021-05-19 07:05] LABS: Blood Urea Nitrogen 12 mg/dL (8-23); Calcium 8.8 mg/dL (8.6-10.4); Carbon Dioxide 27 mmol/L (22-30); Chloride 95 mmol/L (96-108); Glomerular Filtration Rate 91; Glucose 127 mg/dL (70-105)
[2021-05-19] MEDS: PANTOPRAZOLE 40 MG VIAL IV SCH ×2 (07:45→18:01)
[2021-05-19 07:57] LABS: Phosphorous 3.3 mg/dL (2.5-4.5)
[2021-05-19] MEDS: CIPROFLOXACIN 400 MG/200 ML BAG IV SCH ×2 (09:28→22:11)
[2021-05-19] MEDS: HEPARIN 5,000 UNIT/ML VIAL SQ SCH ×2 (09:28→22:10)
[2021-05-19] MEDS: FUROSEMIDE 20 MG/2 ML VIAL IV SCH ×2 (09:28→22:10)
[2021-05-19] MEDS: DOCUSATE SODIUM 100 MG CAPSULE PO SCH ×2 (09:30→22:10)
[2021-05-19] MEDS: BREO ELLIPTA INH SCH (09:31)
--- NOTE | 2021-05-19 11:08 | General Surgery Progress Note ---
SUBJECTIVE Subjective Patient information: Note initiated : 05/19/21 at 11:03 am Service Date, if different from initiated Date: [] Patient: Ilda Byrd 71 y/o F admitted on 05/09/21 for abdominal pain. Chief Complaint: [POD #6 Ex Lap, Extensive DOROTHY, SB Resection, Drainage Intra Abdominal Pelvic Abscess with washout and drainage] She feels well this am. Passing large amounts of gas, pain control ok Constitutional Vitals: Vital Signs Temp Pulse Resp BP Pulse Ox 97.1 F 77 15 138/59 93 05/19/21 07:00 05/19/21 07:00 05/19/21 07:00 05/19/21 07:00 05/19/21 07:00 Period Temp Pulse Resp BP Sys/Wong Pulse Ox Last 24 Hr 97.1 F-98.8 F 77-88 15-20 115-138/51-61 93-94 Intake and Output 05/18/21 05/19/21 05/19/21 21:59 05:59 13:59 Intake Total 1557 300 50 Output Total 2310 1605 600 Balance -753 -1305 -550 Weight 114 lb 8 oz Intake & Output: Intake & Output 05/18/21 05/19/21 05/19/21 21:59 05:59 13:59 Intake Total 1557 300 50 Output Total 2310 1605 600 Balance -753 -1305 -550 Weight 114 lb 8 oz Intake: IV 1557 250 50 Sodium Chloride 0.9% 1,000 ml @ 1000 50 mls/hr IV .Q20H [facility] Rx#: [id number] Sodium Chloride 0.9% 250 ml @ 257 15 mls/hr IV .[id number] [facility] Rx#: [id number] Zosyn 3.375 gm In Dextrose 5% 100 50 50 in Water 50 ml @ 100 mls/hr IV Q6H [facility] Rx#:[id number] Oral 50 Output: Drainage 55 Left Abdomen B 20 Right Abdomen A 35 midline abd 0 Void Amount 1710 1550 600 Urine/Stool Mix 600 Other: Urine Appearance Clear Clear Urine Color Bright Yellow Bright Yellow Stool Size Small Small Stool Color Green Green Stool Consistency Loose Loose # Bowel Movements 2 General appearance: average body habitus and no acute distress Head Head exam: Present atraumatic and normocephalic Respiratory Respiratory exam: Present normal respiratory exam; Absent respiratory distress and stridor Cardiovascular Cardiovascular exam: Present normal rate and rhythm and RRR GI/Abdominal Additional comments: VAC in place, drains benign, belly soft and flat Extremities Exam Additional comments: decreased edema bilaterally with only trace remaining A/P Narrative A/P Narrative: POD #6 Ex lap, Extensive DOROTHY, SB Resection, Drainage Intra Abdominal Pelvic Abscess with washout and drain placement Doing Well with apparent return of bowel function Start Clears and Continue TPN Yeast noted in peritoneal drainage - add Fluconazole IV Increase activity as tolerated Time Spent With Patient Time: Total time spent is greater than 50% in coordination of care (as documented) at patient's floor/unit and/or counseling patient:
[2021-05-19] MEDS ORDERED: MVI IV SCH (13:00)
[2021-05-19] MEDS ORDERED: CALCIUM GLUCONATE IV SCH (13:00)
[2021-05-19] MEDS ORDERED: [UNRECOGNIZED DRUG - OTHER] IV SCH (13:00)
[2021-05-19] MEDS ORDERED: SODIUM CHLORIDE IV SCH (13:00)
[2021-05-19] MEDS ORDERED: MAGNESIUM SULFATE IV SCH (13:00)
[2021-05-19] MEDS ORDERED: FLUCONAZOLE 200 MG/100 ML BAG IV ONE (15:00)
[2021-05-19] MEDS: FAT EMULSION 20% 250 ML in PREMIX 1 BAG IV SCH (16:01)
[2021-05-20] MEDS: INSULIN LISPRO 1 UNIT/0.01 ML UNIT SQ SCH ×5 (00:11→23:42)
[2021-05-20] MEDS: PIPERACILLIN SODIUM/TAZOBACTAM 3.375 GM in DEXTROSE 5% IN WATER 50 ML IV SCH ×5 (00:11→23:42)
[2021-05-20] MEDS: HYDROmorphone 1 MG/ML SYRINGE IV PRN ×11 (00:12→23:42)
[2021-05-20] MEDS: 0.9 % SODIUM CHLORIDE 1,000 ML IV SCH ×2 (05:59→20:59)
[2021-05-20] MEDS: 0.9 % SODIUM CHLORIDE 10 ML SYRINGE IV SCH ×6 (06:00→21:04)
[2021-05-20 09:39] LABS: ALT/SGPT 16 U/L (<40); AST/SGOT 22 U/L (<32); Albumin 2.5 gm/dL (3.2-5.2); Albumin/Globulin Ratio 0.6 (1.0-2.3); Alkaline Phosphatase 124 U/L (39-117); Bilirubin,Direct 0.3 mg/dL (<0.3); Bilirubin,Total 0.6 mg/dL (0.1-1.0); Blood Urea Nitrogen 14 mg/dL (8-23); Calcium 8.9 mg/dL (8.6-10.4); Carbon Dioxide 25 mmol/L (22-30); Chloride 94 mmol/L (96-108); Globulin 4.4 gm/dL (2.2-3.7); Glomerular Filtration Rate 87; Glucose 122 mg/dL (70-105); Lactate Dehydrogenase 174 U/L (135-225); Phosphorous 2.8 mg/dL (2.5-4.5); Triglycerides 90 mg/dL (<150); Uric Acid 1.4 mg/dL (2.5-8.0)
[2021-05-20] MEDS: PANTOPRAZOLE 40 MG VIAL IV SCH ×2 (10:10→17:25)
[2021-05-20] MEDS: BREO ELLIPTA INH SCH (10:10)
[2021-05-20] MEDS: CIPROFLOXACIN 400 MG/200 ML BAG IV SCH (10:10)
[2021-05-20] MEDS: DOCUSATE SODIUM 100 MG CAPSULE PO SCH ×2 (10:11→21:30)
[2021-05-20] MEDS: HEPARIN 5,000 UNIT/ML VIAL SQ SCH ×2 (10:11→21:30)
[2021-05-20] MEDS ORDERED: CALCIUM GLUCONATE IV SCH (13:00)
[2021-05-20] MEDS ORDERED: SODIUM CHLORIDE IV SCH (13:00)
[2021-05-20] MEDS ORDERED: [UNRECOGNIZED DRUG - OTHER] IV SCH (13:00)
[2021-05-20] MEDS ORDERED: MAGNESIUM SULFATE IV SCH (13:00)
[2021-05-20] MEDS: FLUCONAZOLE 200 MG/100 ML BAG IV SCH (13:24)
[2021-05-20] MEDS: IPRATROPIUM/ALBUTEROL 3 ML AMPUL.NEB NEB PRN (20:44)
--- NOTE | 2021-05-20 20:52 | General Surgery Progress Note ---
SUBJECTIVE Subjective Patient information: Note initiated : 05/20/21 at 1130am Service Date, if different from initiated Date: [] Patient: Ilda Byrd 71 y/o F admitted on 05/09/21 for abdominal pain. Chief Complaint:POD # 7 she feels well today but tired and fatigued. pain is ok and tolerating clear liquids well passing large amounts of gas Constitutional Vitals: Vital Signs Temp Pulse Resp BP Pulse Ox 98.7 F 93 H 16 109/47 96 05/20/21 19:07 05/20/21 19:07 05/20/21 19:07 05/20/21 19:07 05/20/21 19:07 Period Temp Pulse Resp BP Sys/Wong Pulse Ox Last 24 Hr 97.7 F-98.7 F 73-93 16-18 109-143/47-79 93-98 Intake and Output 05/20/21 05/20/21 05/20/21 05:59 13:59 21:59 Intake Total 1140 2388.8386 150 Output Total 1020 350 Balance 120 2388.8386 -200 Weight 110 lb 3 oz 110 lb 5 oz Patient Weight 05/21/21 05:59 Weight 110 lb 5 oz Intake & Output: Intake & Output 05/20/21 05/20/21 05/20/21 05:59 13:59 21:59 Intake Total 1140 2388.8386 150 Output Total 1020 350 Balance 120 2388.8386 -200 Weight 110 lb 3 oz 110 lb 5 oz Intake: IV 500 2388.8386 150 Calcium Gluconate 10 Meq 2088.8386 Magnesium Sulfate 16.24 Meq Sodium Chloride 120 Meq Infuvite Adult 10 ml Sodium Phosphate 40 Mmol Potassium Chloride 20 Meq In Clinimix 5%- 20% Solution 2,000 ml @ 60 mls/ hr IV Q24H [facility] Rx#:[id number] Intralipid 20% 250 ml In Premix 250 1 Bag @ 25 mls/hr IV TuThSa@ 1600 [facility] Rx#:[id number] Zosyn 3.375 gm In Dextrose 5% 50 100 50 in Water 50 ml @ 100 mls/hr IV Q6H [facility] Rx#:[id number] Oral 640 Output: Drainage 20 Left Abdomen B 10 Right Abdomen A 10 Void Amount 1000 350 Other: Urine Appearance Clear Clear Urine Color Bright Yellow Straw Urine Odor Normal Stool Size Small Stool Color Brown Black Stool Consistency Loose # Voids 2 General appearance: no acute distress Exam: she seems well, fully oriented Head Head exam: Present atraumatic and normocephalic Respiratory Additional comments: no respiratory distress Cardiovascular Cardiovascular exam: Present normal rate and rhythm and RRR GI/Abdominal Additional comments: drains are benign, VAC in place, soft and flat Neurological Exam Neurological exam: Present oriented X3 A/P Narrative A/P Narrative: POD# 7 Doing well Advance to full liquids but continue TPN for now stop Cipro Home VAC approval pending Time Spent With Patient Time: Total time spent is greater than 50% in coordination of care (as docume nted) at patient's floor/unit and/or counseling patient:
[2021-05-21] MEDS: HYDROmorphone 1 MG/ML SYRINGE IV PRN ×9 (02:46→22:59)
[2021-05-21] MEDS: 0.9 % SODIUM CHLORIDE 10 ML SYRINGE IV SCH ×5 (05:10→21:32)
[2021-05-21] MEDS: INSULIN LISPRO 1 UNIT/0.01 ML UNIT SQ SCH ×3 (05:19→16:58)
[2021-05-21] MEDS: PIPERACILLIN SODIUM/TAZOBACTAM 3.375 GM in DEXTROSE 5% IN WATER 50 ML IV SCH ×3 (05:20→16:58)
[2021-05-21 06:43] LABS: Hematocrit 30.2 % (34.1-44.9); Hemoglobin 9.3 g/dL (11.2-15.7); Mean Cell Volume 73.8 fL (80.0-100.0); Mean Corpuscular HGB Conc 30.8 g/dL (31.0-36.0); Mean Platelet Volume 10.1 fL (7.4-10.4); Platelet Count 360 K/mcL (140-440); RBC 4.09 M/mcL (3.59-5.38); Red Cell Distribution Width 22.6 % (11.5-14.5); WBC 15.7 K/mcL (4.5-11.0)
[2021-05-21 07:08] LABS: ALT/SGPT 14 U/L (<40); AST/SGOT 18 U/L (<32); Albumin 2.7 gm/dL (3.2-5.2); Albumin/Globulin Ratio 0.8 (1.0-2.3); Alkaline Phosphatase 114 U/L (39-117); Bilirubin,Direct < 0.2 mg/dL (0-0.3); Bilirubin,Total 0.5 mg/dL (0.1-1.0); Blood Urea Nitrogen 12 mg/dL (8-23); Calcium 8.6 mg/dL (8.6-10.4); Carbon Dioxide 24 mmol/L (22-30); Chloride 96 mmol/L (96-108); Globulin 3.5 gm/dL (2.2-3.7); Glomerular Filtration Rate 91; Glucose 133 mg/dL (70-105); Lactate Dehydrogenase 173 U/L (135-225); Phosphorous 2.8 mg/dL (2.5-4.5); Triglycerides 76 mg/dL (<150); Uric Acid 1.2 mg/dL (2.5-8.0)
[2021-05-21] MEDS: PANTOPRAZOLE 40 MG VIAL IV SCH ×2 (08:24→16:07)
[2021-05-21] MEDS: BREO ELLIPTA INH SCH (08:24)
[2021-05-21] MEDS: DOCUSATE SODIUM 100 MG CAPSULE PO SCH ×2 (08:24→21:32)
[2021-05-21] MEDS: HEPARIN 5,000 UNIT/ML VIAL SQ SCH ×2 (08:24→21:31)
[2021-05-21] MEDS: FLUCONAZOLE 200 MG/100 ML BAG IV SCH (08:24)
[2021-05-21] MEDS ORDERED: SODIUM CHLORIDE IV SCH (13:00)
[2021-05-21] MEDS ORDERED: MAGNESIUM SULFATE IV SCH (13:00)
[2021-05-21] MEDS ORDERED: [UNRECOGNIZED DRUG - OTHER] IV SCH (13:00)
[2021-05-21] MEDS ORDERED: CALCIUM GLUCONATE IV SCH (13:00)
--- NOTE | 2021-05-21 13:07 | General Surgery Progress Note ---
SUBJECTIVE Subjective Patient information: Note initiated : 05/21/21 at 12:56 pm Service Date, if different from initiated Date: [] Patient: Ilda Byrd 71 y/o F admitted on 05/09/21 for abdominal pain. Chief Complaint: [] Principal diagnosis: Pelvic abscess; small bowel obstruction Interval history: Patient is clinically stable. She has been afebrile but her white blood count increased overnight. She is having some flatus and had a very small bowel movement yesterday. She denies nausea. Patient does have some wheezes and she has significant peripheral edema. WERO drainage is serous. Wound VAC is functioning appropriately. Constitutional Vitals: Vital Signs Temp Pulse Resp BP Pulse Ox 98 F 82 18 136/77 93 05/21/21 11:35 05/21/21 11:35 05/21/21 11:35 05/21/21 11:35 05/21/21 11:35 Period Temp Pulse Resp BP Sys/Wong Pulse Ox Last 24 Hr 97.8 F-98.7 F 75-99 16-18 109-143/47-79 93-96 Intake and Output 05/20/21 05/21/21 05/21/21 21:59 05:59 13:59 Intake Total 150 450 630 Output Total 350 695 Balance -200 -245 630 Weight 110 lb 5 oz Intake & Output: Intake & Output 05/20/21 05/21/21 05/21/21 21:59 05:59 13:59 Intake Total 150 450 630 Output Total 350 695 Balance -200 -245 630 Weight 110 lb 5 oz Intake: IV 150 50 150 Zosyn 3.375 gm In Dextrose 5% 50 50 50 in Water 50 ml @ 100 mls/hr IV Q6H [facility] Rx#:[id number] Oral 400 480 Output: Drainage 20 Left Abdomen B 8 Right Abdomen A 12 Void Amount 350 675 Other: Meal Breakfast Percent of Meal Consumed bites Feeding Ability Independent Urine Appearance Clear Urine Color Straw Urine Odor Normal Eye Eye exam: Present EOMI Pupils: Present normal accommodation and PERRL ENT ENT exam: Present mucous membranes moist and normal exam Neck Neck exam: Present full ROM and normal inspection; Absent lymphadenopathy and tenderness Respiratory Respiratory exam: Present rales (Basilar rales) and wheezes (Wheezes anteriorly and posteriorly) Cardiovascular Cardiovascular exam: Present normal rate and rhythm, RRR, +S1 and +S2; Absent gallop and JVD GI/Abdominal GI/Abdominal exam: Present soft and diminished bowel sounds; Absent organomegaly Additional comments: The drainage is serousl Extremities Exam Extremities exam: Present full ROM and pedal edema (3+ pedal edema bilaterally) Neurological Exam Neurological exam: Present alert, oriented X3 and reflexes normal Psychiatric Psychiatric exam: Present normal affect and normal mood A/P Assessment and plan (1) SBO (small bowel obstruction): Status: Acute (2) Pelvic abscess: Status: Acute (3) COPD (chronic obstructive pulmonary disease): Status: Chronic Narrative A/P Narrative: Saline lock IV GI soft diet Change duo nebs to every 6 hours Potassium chloride rider IV Change wound VAC to every 2 days Ambulate at least 3 times daily Time Spent With Patient Time: Total time spent is greater than 50% in coordination of care (as documented) at patient's floor/unit and/or counseling patient:
[2021-05-21] MEDS: IPRATROPIUM/ALBUTEROL 3 ML AMPUL.NEB NEB PRN (13:42)
[2021-05-21] MEDS: FAT EMULSION 20% 250 ML in PREMIX 1 BAG IV SCH (16:06)
[2021-05-21] MEDS: FUROSEMIDE 20 MG/2 ML VIAL IV SCH (16:07)
[2021-05-21] MEDS ORDERED: POTASSIUM CHLORIDE 20 MEQ PACKET PO SCH (17:30)
[2021-05-21] MEDS: IPRATROPIUM/ALBUTEROL 3 ML AMPUL.NEB NEB SCH (19:23)
[2021-05-22] MEDS: PIPERACILLIN SODIUM/TAZOBACTAM 3.375 GM in DEXTROSE 5% IN WATER 50 ML IV SCH ×3 (00:05→12:33)
[2021-05-22] MEDS: INSULIN LISPRO 1 UNIT/0.01 ML UNIT SQ SCH ×5 (00:05→23:26)
[2021-05-22] MEDS: HYDROmorphone 1 MG/ML SYRINGE IV PRN ×7 (00:43→23:27)
[2021-05-22] MEDS: IPRATROPIUM/ALBUTEROL 3 ML AMPUL.NEB NEB SCH ×4 (01:12→19:42)
[2021-05-22] MEDS: 0.9 % SODIUM CHLORIDE 10 ML SYRINGE IV SCH ×5 (06:07→20:01)
[2021-05-22 06:36] LABS: Basophils # (Auto) 0.08 K/mcL (0.00-0.30); Basophils % (Auto) 0.5 % (0.0-2.0); Eosinophils # (Auto) 0.14 K/mcL (0.00-0.70); Eosinophils % (Auto) 0.8 % (0.0-7.0); Hematocrit 32.8 % (34.1-44.9); Hemoglobin 9.7 g/dL (11.2-15.7); Lymphocytes # (Auto) 0.96 K/mcL (1.50-4.80); Lymphocytes % (Auto) 5.5 % (15.5-49.0); Mean Cell Volume 74.4 fL (80.0-100.0); Mean Corpuscular HGB Conc 29.6 g/dL (31.0-36.0); Mean Platelet Volume 10.6 fL (7.4-10.4); Monocytes # (Auto) 1.36 K/mcL (0.10-0.90); Monocytes % (Auto) 7.8 % (1.0-12.0); Neutrophils % (Auto) 85.4 % (38.0-78.0); Platelet Count 420 K/mcL (140-440); RBC 4.41 M/mcL (3.59-5.38); Red Cell Distribution Width 22.8 % (11.5-14.5); WBC 17.4 K/mcL (4.5-11.0)
[2021-05-22] MEDS: PANTOPRAZOLE 40 MG VIAL IV SCH ×2 (06:50→16:28)
[2021-05-22] MEDS: FUROSEMIDE 20 MG/2 ML VIAL IV SCH ×2 (06:50→16:28)
[2021-05-22 07:10] LABS: ALT/SGPT 14 U/L (<40); AST/SGOT 18 U/L (<32); Albumin/Globulin Ratio 0.7 (1.0-2.3); Alkaline Phosphatase 127 U/L (39-117); Bilirubin,Direct < 0.2 mg/dL (0-0.3); Bilirubin,Total 0.5 mg/dL (0.1-1.0); Blood Urea Nitrogen 14 mg/dL (8-23); Calcium 9.1 mg/dL (8.6-10.4); Carbon Dioxide 25 mmol/L (22-30); Chloride 92 mmol/L (96-108); Globulin 4.3 gm/dL (2.2-3.7); Glomerular Filtration Rate 87; Glucose 133 mg/dL (70-105); Lactate Dehydrogenase 191 U/L (135-225); Triglycerides 70 mg/dL (<150); Uric Acid 1.4 mg/dL (2.5-8.0)
[2021-05-22] MEDS: HEPARIN 5,000 UNIT/ML VIAL SQ SCH ×2 (09:26→19:51)
[2021-05-22] MEDS: FLUCONAZOLE 200 MG/100 ML BAG IV SCH (09:27)
[2021-05-22] MEDS: BREO ELLIPTA INH SCH (09:27)
[2021-05-22] MEDS: DOCUSATE SODIUM 100 MG CAPSULE PO SCH ×2 (09:27→19:51)
[2021-05-22] MEDS ORDERED: CALCIUM GLUCONATE IV SCH (13:00)
[2021-05-22] MEDS ORDERED: [UNRECOGNIZED DRUG - OTHER] IV SCH (13:00)
[2021-05-22] MEDS ORDERED: MAGNESIUM SULFATE IV SCH (13:00)
[2021-05-22] MEDS ORDERED: SODIUM CHLORIDE IV SCH (13:00)
--- NOTE | 2021-05-22 15:24 | General Surgery Progress Note ---
SUBJECTIVE Subjective Patient information: Note initiated : 05/22/21 at 3:19 pm Service Date, if different from initiated Date: [] Patient: Ilda Byrd 71 y/o F admitted on 05/09/21 for abdominal pain. Chief Complaint: [] Principal diagnosis: Pelvic abscess; small bowel obstruction Interval history: Patient could continues to have good intestinal function. She has rising white blood count. Review of her cultures and sensitivity suggests that ciprofloxacin is a better coverage and Zosyn so she is changed back to ciprofloxacin and the Zosyn is discontinued white blood count 17.4, hemoglobin 9.7, hematocrit 32.8, potassium 3.7, BUN 14. Constitutional Vitals: Vital Signs Temp Pulse Resp BP Pulse Ox 98.9 F 91 H 18 91/46 96 05/22/21 13:02 05/22/21 13:02 05/22/21 13:02 05/22/21 13:02 05/22/21 13:02 Period Temp Pulse Resp BP Sys/Wong Pulse Ox Last 24 Hr 98.3 F-98.9 F 91-109 17-18 91-129/46-52 92-96 Intake and Output 05/22/21 05/22/21 05/22/21 05:59 13:59 21:59 Intake Total 1666 Output Total 0 Balance 1666 Intake & Output: Intake & Output 05/22/21 05/22/21 05/22/21 05:59 13:59 21:59 Intake Total 1666 Output Total 0 Balance 1666 Intake: IV 1666 Calcium Gluconate 10 Meq 1466 Magnesium Sulfate 32.48 Meq Sodium Chloride 200 Meq Potassium Chloride 60 Meq Potassium Phosphate 60 Meq In Clinimix 5%-20% Solution 2,000 ml @ 60 mls/hr IV Q24H [facility] Rx#: [id number] Intralipid 20% 250 ml In Premix 1 Bag @ 25 mls/hr IV TuThSa@ 1600 [facility] Rx#:[id number] Zosyn 3.375 gm In Dextrose 5% 100 in Water 50 ml @ 100 mls/hr IV Q6H [facility] Rx#:[id number] Oral Output: Drainage 0 Left Abdomen B 0 Right Abdomen A 0 Drainage Left Abdomen B Right Abdomen A Void Amount Other: Stool Size Smear Stool Color Brown Green Black Stool Consistency Soft Head Head exam: Present atraumatic, normal inspection and normocephalic Respiratory Respiratory exam: Present normal respiratory exam and CTAB Cardiovascular Cardiovascular exam: Present normal rate and rhythm, RRR, +S1 and +S2; Absent JVD GI/Abdominal GI/Abdominal exam: Present normal bowel sounds and soft; Absent distended Extremities Exam Extremities exam: Present full ROM, normal inspection and neurovascular intact Back Exam Back exam: Present full ROM Neurological Exam Neurological exam: Present normal gait, oriented X3 and reflexes normal Psychiatric Psychiatric exam: Present anxious, normal affect and normal mood A/P Assessment and plan (1) Pelvic abscess: Status: Acute (2) SBO (small bowel obstruction): Status: Acute Narrative A/P Narrative: Discontinued Zosyn Ciprofloxacin 400 mg IV every 12 Continue metronidazole Time Spent With Patient Time: Total time spent is greater than 50% in coordination of care (as documented) at patient's floor/unit and/or counseling patient:
[2021-05-22] MEDS: CIPROFLOXACIN 400 MG/200 ML BAG IV SCH (16:27)
[2021-05-22] MEDS: metroNIDAZOLE 500 MG/100 ML BAG IV SCH (21:50)
[2021-05-23] MEDS: CIPROFLOXACIN 400 MG/200 ML BAG IV SCH ×3 (00:33→20:10)
[2021-05-23] MEDS: IPRATROPIUM/ALBUTEROL 3 ML AMPUL.NEB NEB SCH ×5 (00:33→23:30)
[2021-05-23] MEDS: HYDROmorphone 1 MG/ML SYRINGE IV PRN ×8 (02:58→23:53)
[2021-05-23] MEDS: INSULIN LISPRO 1 UNIT/0.01 ML UNIT SQ SCH ×4 (06:08→23:30)
[2021-05-23] MEDS: 0.9 % SODIUM CHLORIDE 10 ML SYRINGE IV SCH ×6 (06:08→20:19)
[2021-05-23] MEDS: metroNIDAZOLE 500 MG/100 ML BAG IV SCH ×3 (06:09→21:55)
[2021-05-23] MEDS: PANTOPRAZOLE 40 MG VIAL IV SCH ×2 (06:27→17:05)
[2021-05-23 08:17] LABS: Basophils # (Auto) 0.06 K/mcL (0.00-0.30); Basophils % (Auto) 0.4 % (0.0-2.0); Eosinophils # (Auto) 0.18 K/mcL (0.00-0.70); Eosinophils % (Auto) 1.3 % (0.0-7.0); Hematocrit 26.7 % (34.1-44.9); Hemoglobin 8.5 g/dL (11.2-15.7); Lymphocytes # (Auto) 0.99 K/mcL (1.50-4.80); Lymphocytes % (Auto) 7.1 % (15.5-49.0); Mean Cell Volume 77.8 fL (80.0-100.0); Mean Corpuscular HGB Conc 31.8 g/dL (31.0-36.0); Mean Platelet Volume 10.3 fL (7.4-10.4); Monocytes # (Auto) 1.46 K/mcL (0.10-0.90); Monocytes % (Auto) 10.5 % (1.0-12.0); Neutrophils % (Auto) 80.7 % (38.0-78.0); Platelet Count 377 K/mcL (140-440); RBC 3.43 M/mcL (3.59-5.38); Red Cell Distribution Width 24.3 % (11.5-14.5); WBC 13.9 K/mcL (4.5-11.0)
[2021-05-23 08:23] LABS: ALT/SGPT 12 U/L (<40); AST/SGOT 19 U/L (<32); Albumin 2.4 gm/dL (3.2-5.2); Albumin/Globulin Ratio 0.6 (1.0-2.3); Alkaline Phosphatase 98 U/L (39-117); Bilirubin,Direct < 0.2 mg/dL (0-0.3); Bilirubin,Total 0.4 mg/dL (0.1-1.0); Blood Urea Nitrogen 16 mg/dL (8-23); Calcium 8.8 mg/dL (8.6-10.4); Carbon Dioxide 25 mmol/L (22-30); Chloride 97 mmol/L (96-108); Globulin 3.9 gm/dL (2.2-3.7); Glomerular Filtration Rate 87; Glucose 117 mg/dL (70-105); Lactate Dehydrogenase 204 U/L (135-225); Phosphorous 2.7 mg/dL (2.5-4.5); Triglycerides 64 mg/dL (<150); Uric Acid 1.8 mg/dL (2.5-8.0)
[2021-05-23] MEDS: FLUCONAZOLE 200 MG/100 ML BAG IV SCH (08:28)
[2021-05-23] MEDS: DOCUSATE SODIUM 100 MG CAPSULE PO SCH ×2 (08:29→20:18)
[2021-05-23] MEDS: FUROSEMIDE 20 MG/2 ML VIAL IV SCH ×2 (08:30→17:05)
[2021-05-23] MEDS: BREO ELLIPTA INH SCH (08:30)
[2021-05-23] MEDS: HEPARIN 5,000 UNIT/ML VIAL SQ SCH ×2 (08:30→20:12)
[2021-05-23] MEDS ORDERED: 0.9 % SODIUM CHLORIDE 1,000 ML IV SCH (10:45)
--- NOTE | 2021-05-23 10:56 | General Surgery Progress Note ---
SUBJECTIVE Subjective Patient information: Note initiated : 05/23/21 at 10:55 am Service Date, if different from initiated Date: [] Patient: Ilda Byrd 71 y/o F admitted on 05/09/21 for abdominal pain. Chief Complaint: [POD #10 Ex Lap, Extensive Lysis of Adhesions, SB Resection, Drainage Pelvic Abscess with washout and drainage] Principal diagnosis: Pelvic abscess; small bowel obstruction Constitutional Vitals: Vital Signs Temp Pulse Resp BP Pulse Ox 98 F 99 H 16 103/64 93 05/23/21 07:13 05/23/21 07:21 05/23/21 07:21 05/23/21 07:13 05/23/21 07:21 Period Temp Pulse Resp BP Sys/Wong Pulse Ox Last 24 Hr 98 F-98.9 F 49-113 16-18 91-122/46-66 91-96 Intake and Output 05/22/21 05/23/21 05/23/21 21:59 05:59 13:59 Intake Total 1240 700 400 Output Total 2750 531.50 2500 Balance -1510 168.50 -2100 Weight 107 lb 4 oz Intake & Output: Intake & Output 05/22/21 05/23/21 05/23/21 21:59 05:59 13:59 Intake Total 1240 700 400 Output Total 2750 531.50 2500 Balance -1510 168.50 -2100 Weight 107 lb 4 oz Intake: Nourishment/Supplement quantity 240 (ml) IV 200 300 400 Calcium Gluconate 10 Meq 0 Magnesium Sulfate 32.48 Meq Sodium Chloride 200 Meq Potassium Chloride 60 Meq Potassium Phosphate 60 Meq In Clinimix 5%-20% Solution 2,000 ml @ 60 mls/hr IV Q24H [facility] Rx#: [id number] Oral 800 400 Output: Drainage 6.50 Left Abdomen B 3.25 Right Abdomen A 3.25 Void Amount 565 904 8760 Urine/Stool Mix 1800 Other: Meal Nourishment/Supplement Breakfast Percent of Meal Consumed 25% 25% Feeding Ability Independent Independent Nourishment/Supplement name protein drink Urine Appearance Clear Clear Urine Color Bright Yellow Bright Yellow Stool Size Moderate Stool Color Brown Stool Consistency Soft # Bowel Movements 1 General appearance: no acute distress Head Head exam: Present atraumatic and normocephalic Respiratory Respiratory exam: Present normal respiratory exam Cardiovascular Cardiovascular exam: Present normal rate and rhythm and RRR GI/Abdominal GI/Abdominal exam: Present soft Additional comments: drains dry, soft and non distended VAC in place Neurological Exam Neurological exam: Present oriented X3 A/P Narrative A/P Narrative: POD #10 Ex Lap, Extensive DOROTHY, SB Resection, Drainage Intra Abdominal Pelvic Abscess with washout and drainage Doing Well WBC trending back down after change to Cipro and Flagyl Regular Diet Wound check with VAC change tomorrow Awaiting home VAC approval with possible discharge at that time Time Spent With Patient Time: Total time spent is greater than 50% in coordination of care (as documented) at patient's floor/unit and/or counseling patient:
[2021-05-23] MEDS ORDERED: MAGNESIUM SULFATE IV SCH (13:00)
[2021-05-23] MEDS ORDERED: CALCIUM GLUCONATE IV SCH (13:00)
[2021-05-23] MEDS ORDERED: [UNRECOGNIZED DRUG - OTHER] IV SCH (13:00)
[2021-05-23] MEDS ORDERED: SODIUM CHLORIDE IV SCH (13:00)
[2021-05-23] MEDS: IPRATROPIUM/ALBUTEROL 3 ML AMPUL.NEB NEB PRN (22:56)
[2021-05-24] MEDS: 0.9 % SODIUM CHLORIDE 10 ML SYRINGE IV SCH ×5 (04:06→22:52)
[2021-05-24] MEDS: metroNIDAZOLE 500 MG/100 ML BAG IV SCH ×3 (05:43→21:48)
[2021-05-24] MEDS: INSULIN LISPRO 1 UNIT/0.01 ML UNIT SQ SCH ×3 (05:44→17:25)
[2021-05-24 06:41] LABS: Hematocrit 30.7 % (34.1-44.9); Hemoglobin 9.2 g/dL (11.2-15.7); Mean Cell Volume 75.1 fL (80.0-100.0); Mean Platelet Volume 10.4 fL (7.4-10.4); Platelet Count 442 K/mcL (140-440); RBC 4.09 M/mcL (3.59-5.38); Red Cell Distribution Width 23.6 % (11.5-14.5); WBC 12.2 K/mcL (4.5-11.0)
[2021-05-24 07:04] LABS: ALT/SGPT 15 U/L (<40); AST/SGOT 22 U/L (<32); Albumin 2.5 gm/dL (3.2-5.2); Albumin/Globulin Ratio 0.6 (1.0-2.3); Alkaline Phosphatase 108 U/L (39-117); Bilirubin,Direct < 0.2 mg/dL (0-0.3); Bilirubin,Total 0.3 mg/dL (0.1-1.0); Blood Urea Nitrogen 16 mg/dL (8-23); Calcium 8.8 mg/dL (8.6-10.4); Carbon Dioxide 23 mmol/L (22-30); Chloride 96 mmol/L (96-108); Globulin 4.2 gm/dL (2.2-3.7); Glomerular Filtration Rate 87; Glucose 125 mg/dL (70-105); Lactate Dehydrogenase 198 U/L (135-225); Phosphorous 3.5 mg/dL (2.5-4.5); Triglycerides 55 mg/dL (<150); Uric Acid 2.6 mg/dL (2.5-8.0)
[2021-05-24] MEDS: IPRATROPIUM/ALBUTEROL 3 ML AMPUL.NEB NEB SCH ×3 (08:04→19:20)
[2021-05-24] MEDS: PANTOPRAZOLE 40 MG VIAL IV SCH (08:21)
--- NOTE | 2021-05-24 08:47 | General Surgery Progress Note ---
SUBJECTIVE Subjective Patient information: Note initiated : 05/24/21 at 8:42 am Service Date, if different from initiated Date: [] Patient: Ilda Byrd 71 y/o F admitted on 05/09/21 for abdominal pain. Chief Complaint: [POD #11 Ex Lap, Extensive DOROTHY, SB Resection, Drainage of Intra Abdominal Pelvic Abscess with Washout and Drain Placement] She feels ok this am, tolerating diet and continues to have bowel function. Principal diagnosis: Pelvic abscess; small bowel obstruction Constitutional Vitals: Vital Signs Temp Pulse Resp BP Pulse Ox 98.5 F 104 H 18 114/52 92 05/24/21 07:44 05/24/21 08:12 05/24/21 08:12 05/24/21 07:44 05/24/21 08:12 Period Temp Pulse Resp BP Sys/Wong Pulse Ox Last 24 Hr 97.2 F-99.7 F 74-117 14-20 110-139/52-70 88-93 Intake and Output 05/23/21 05/24/21 05/24/21 21:59 05:59 13:59 Intake Total 2279.1417 1436 100 Output Total 1150 300 55 Balance 1129.1417 1136 45 Weight 111 lb 6.4 oz Intake & Output: Intake & Output 05/23/21 05/24/21 05/24/21 21:59 05:59 13:59 Intake Total 2279.1417 1436 100 Output Total 1150 300 55 Balance 1129.1417 1136 45 Weight 111 lb 6.4 oz Intake: IV 1539.1417 1186 100 Calcium Gluconate 10 Meq 1439.1417 886 Magnesium Sulfate 32.48 Meq Sodium Chloride 240 Meq Potassium Chloride 60 Meq Potassium Phosphate 80 Meq In Clinimix 5%-20% Solution 2,000 ml @ 60 mls/hr IV DAILY@1300 [facility] Rx#:[id number] Oral 740 250 Output: Drainage 55 Left Abdomen B 35 Right Abdomen A 20 Urine Catheter Amount 1000 Void Amount 150 300 Other: Meal Dinner Percent of Meal Consumed 25% Feeding Ability Independent Urine Appearance Clear Clear Urine Color Bright Yellow Bright Yellow Stool Size Small Stool Color Brown Green Stool Consistency Soft # Bowel Movements 1 General appearance: cooperative and no acute distress Head Head exam: Present atraumatic and normocephalic Respiratory Respiratory exam: Absent respiratory distress and stridor Cardiovascular Cardiovascular exam: Present normal rate and rhythm and RRR GI/Abdominal Additional comments: drains dry, VAC in place, belly seems soft, non distended and minimally tender Neurological Exam Neurological exam: Present oriented X3 A/P Narrative A/P Narrative: POD #11 Ex lap, Extensive DOROTHY, SB Resection, Drainage Intra Abdominal Pelvic Abscess with Washout and Drainage Seems to be doing ok Home VAC approved - will check wound during dressing change today Increase activity and Continue IV ABs for now Time Spent With Patient Time: Total time spent is greater than 50% in coordination of care (as documented) at patient's floor/unit and/or counseling patient:
[2021-05-24] MEDS: HEPARIN 5,000 UNIT/ML VIAL SQ SCH ×2 (09:16→20:39)
[2021-05-24] MEDS: DOCUSATE SODIUM 100 MG CAPSULE PO SCH ×2 (09:16→20:39)
[2021-05-24] MEDS: CIPROFLOXACIN 400 MG/200 ML BAG IV SCH ×2 (09:16→20:39)
[2021-05-24] MEDS: BREO ELLIPTA INH SCH (09:18)
[2021-05-24] MEDS: HYDROmorphone 1 MG/ML SYRINGE IV PRN (09:53)
[2021-05-24] MEDS: FLUCONAZOLE 200 MG/100 ML BAG IV SCH (10:27)
[2021-05-24] MEDS ORDERED: MAGNESIUM SULFATE IV SCH (13:00)
[2021-05-24] MEDS ORDERED: CALCIUM GLUCONATE IV SCH (13:00)
[2021-05-24] MEDS ORDERED: [UNRECOGNIZED DRUG - OTHER] IV SCH (13:00)
[2021-05-24] MEDS ORDERED: SODIUM CHLORIDE IV SCH (13:00)
[2021-05-24] MEDS: morphine 30 MG TAB.SR.12H PO SCH ×2 (13:58→20:39)
[2021-05-24] MEDS: PANTOPRAZOLE 40 MG TABLET PO SCH (17:23)
[2021-05-25] MEDS: IPRATROPIUM/ALBUTEROL 3 ML AMPUL.NEB NEB SCH ×4 (00:10→19:26)
[2021-05-25] MEDS: 0.9 % SODIUM CHLORIDE 10 ML SYRINGE IV SCH ×5 (05:43→22:44)
[2021-05-25] MEDS: metroNIDAZOLE 500 MG/100 ML BAG IV SCH ×3 (05:43→22:43)
[2021-05-25] MEDS: PANTOPRAZOLE 40 MG TABLET PO SCH ×2 (06:49→16:18)
[2021-05-25 06:55] LABS: Hematocrit 29.4 % (34.1-44.9); Hemoglobin 9.1 g/dL (11.2-15.7); Mean Cell Volume 73.5 fL (80.0-100.0); Mean Platelet Volume 10.2 fL (7.4-10.4); Platelet Count 470 K/mcL (140-440); Red Cell Distribution Width 23.4 % (11.5-14.5); WBC 11.1 K/mcL (4.5-11.0)
[2021-05-25 07:24] LABS: Blood Urea Nitrogen 11 mg/dL (8-23); Calcium 9.2 mg/dL (8.6-10.4); Carbon Dioxide 24 mmol/L (22-30); Chloride 96 mmol/L (96-108); Glomerular Filtration Rate 74; Glucose 89 mg/dL (70-105)
[2021-05-25] MEDS: FLUCONAZOLE 200 MG/100 ML BAG IV SCH (08:47)
[2021-05-25] MEDS: morphine 30 MG TAB.SR.12H PO SCH ×3 (08:47→21:05)
[2021-05-25] MEDS: CIPROFLOXACIN 400 MG/200 ML BAG IV SCH ×2 (08:47→21:06)
[2021-05-25] MEDS: DOCUSATE SODIUM 100 MG CAPSULE PO SCH ×2 (08:48→21:06)
[2021-05-25] MEDS: HEPARIN 5,000 UNIT/ML VIAL SQ SCH ×2 (08:48→21:05)
[2021-05-25] MEDS: BREO ELLIPTA INH SCH (08:58)
--- NOTE | 2021-05-25 14:47 | General Surgery Progress Note ---
SUBJECTIVE Subjective Patient information: Note initiated : 05/25/21 at 2:41 pm Service Date, if different from initiated Date: [] Patient: Ilda Byrd 71 y/o F admitted on 05/09/21 for abdominal pain. Chief Complaint: [POD #12 Ex Lap, Extensive DOROTHY, SB Resection, Drainage Intra Abdominal Abscess with Washout and Drainage] She feels well today and continues to feel ready to go home. Home VAC is now approved and reportedly will be placed tomorrow. Oral intake has been ok and pain control is good back on home regimen. Principal diagnosis: Pelvic abscess; small bowel obstruction Constitutional Vitals: Vital Signs Temp Pulse Resp BP Pulse Ox 97.3 F 96 H 18 117/56 90 05/25/21 12:00 05/25/21 12:00 05/25/21 12:00 05/25/21 12:00 05/25/21 12:00 Period Temp Pulse Resp BP Sys/Wong Pulse Ox Last 24 Hr 97 F-99.1 F 88-110 15-20 97-117/47-56 90-95 Intake and Output 05/25/21 05/25/21 05/25/21 05:59 13:59 21:59 Intake Total 500 520 220 Output Total 753 1100 Balance -253 -580 220 Weight 107 lb 9.6 oz Patient Weight 05/26/21 05:59 Weight 107 lb 9.6 oz Intake & Output: Intake & Output 05/25/21 05/25/21 05/25/21 05:59 13:59 21:59 Intake Total 500 520 220 Output Total 753 1100 Balance -253 -580 220 Weight 107 lb 9.6 oz Intake: IV 300 400 100 Oral 200 120 120 Output: Drainage 3 Left Abdomen B 1 Right Abdomen A 2 Void Amount 750 1100 Other: Meal Breakfast Lunch Percent of Meal Consumed 0% 50% Urine Appearance Clear Urine Color Bright Yellow General appearance: no acute distress Head Head exam: Present atraumatic and normocephalic Respiratory Respiratory exam: Absent respiratory distress Cardiovascular Cardiovascular exam: Present normal rate and rhythm and RRR GI/Abdominal Additional comments: soft and non distended, drains scant, VAC in place A/P Narrative A/P Narrative: POD #12 Ex Lap, Extensive DOROTHY, SB Resection, Drainage Intra Abdominal Pelvic Abscess with washout and drainage Doing Well Possible discharge home tomorrow on Oral ABs, Wound VAC and Clinic follow up Time Spent With Patient Time: Total time spent is greater than 50% in coordination of care (as documented) at patient's floor/unit and/or counseling patient:
[2021-05-26] MEDS: IPRATROPIUM/ALBUTEROL 3 ML AMPUL.NEB NEB SCH ×3 (00:48→13:22)
[2021-05-26] MEDS: metroNIDAZOLE 500 MG/100 ML BAG IV SCH ×2 (05:30→16:31)
[2021-05-26] MEDS: 0.9 % SODIUM CHLORIDE 10 ML SYRINGE IV SCH ×3 (05:31→16:32)
[2021-05-26] MEDS: PANTOPRAZOLE 40 MG TABLET PO SCH (06:42)
[2021-05-26 06:58] LABS: Basophils # (Auto) 0.09 K/mcL (0.00-0.30); Basophils % (Auto) 0.9 % (0.0-2.0); Eosinophils % (Auto) 4.1 % (0.0-7.0); Hematocrit 31.8 % (34.1-44.9); Hemoglobin 9.8 g/dL (11.2-15.7); Lymphocytes # (Auto) 1.04 K/mcL (1.50-4.80); Lymphocytes % (Auto) 10.7 % (15.5-49.0); Mean Cell Volume 74.5 fL (80.0-100.0); Mean Corpuscular HGB Conc 30.8 g/dL (31.0-36.0); Mean Platelet Volume 10.1 fL (7.4-10.4); Monocytes # (Auto) 1.22 K/mcL (0.10-0.90); Monocytes % (Auto) 12.5 % (1.0-12.0); Neutrophils % (Auto) 71.8 % (38.0-78.0); Platelet Count 504 K/mcL (140-440); RBC 4.27 M/mcL (3.59-5.38); Red Cell Distribution Width 23.5 % (11.5-14.5); WBC 9.8 K/mcL (4.5-11.0)
[2021-05-26 07:41] LABS: Blood Urea Nitrogen 12 mg/dL (8-23); Calcium 9.1 mg/dL (8.6-10.4); Carbon Dioxide 25 mmol/L (22-30); Chloride 97 mmol/L (96-108); Glomerular Filtration Rate 74; Glucose 116 mg/dL (70-105)
[2021-05-26] MEDS: FLUCONAZOLE 200 MG/100 ML BAG IV SCH (08:10)
[2021-05-26] MEDS: CIPROFLOXACIN 400 MG/200 ML BAG IV SCH (08:10)
[2021-05-26] MEDS: morphine 30 MG TAB.SR.12H PO SCH ×2 (08:10→15:05)
[2021-05-26] MEDS: DOCUSATE SODIUM 100 MG CAPSULE PO SCH (08:10)
[2021-05-26] MEDS: HEPARIN 5,000 UNIT/ML VIAL SQ SCH (08:11)
[2021-05-26] MEDS: BREO ELLIPTA INH SCH (08:22)
--- NOTE | 2021-05-26 09:55 | General Surgery Progress Note ---
SUBJECTIVE Subjective Patient information: Note initiated : 05/26/21 at 9:50 am Service Date, if different from initiated Date: [] Patient: Ilda Byrd 71 y/o F admitted on 05/09/21 for abdominal pain. Chief Complaint: [POD #13 Ex Lap, Extensive DOROTHY, SB Resection, Drainage Intra Abdominal Pelvic Abscess with washout and drainage] Doing well, wanting discharge today, ambulating well Principal diagnosis: Pelvic abscess; small bowel obstruction Constitutional Vitals: Vital Signs Temp Pulse Resp BP Pulse Ox 96.6 F L 99 H 16 105/59 96 05/26/21 08:00 05/26/21 08:00 05/26/21 08:00 05/26/21 08:00 05/26/21 08:00 Period Temp Pulse Resp BP Sys/Wong Pulse Ox Last 24 Hr 96.6 F-99.5 F 96-114 16-20 103-126/56-70 90-96 Intake and Output 05/25/21 05/26/21 05/26/21 21:59 05:59 13:59 Intake Total 340 400 300 Output Total 600 528 Balance -260 -128 300 Weight 107 lb Intake & Output: Intake & Output 05/25/21 05/26/21 05/26/21 21:59 05:59 13:59 Intake Total 340 400 300 Output Total 600 528 Balance -260 -128 300 Weight 107 lb Intake: IV 100 300 300 Oral 240 100 Output: Drainage 3 Left Abdomen B 1 Right Abdomen A 2 Void Amount 600 525 Other: Meal Dinner Percent of Meal Consumed 50% Feeding Ability Independent Urine Appearance Clear Clear Urine Color Bright Yellow Bright Yellow # Voids 4 General appearance: cooperative and no acute distress Respiratory Respiratory exam: Absent respiratory distress Additional comments: normal inspiratory effort Cardiovascular Cardiovascular exam: Present RRR GI/Abdominal Additional comments: VAC and drains in place, benign, non distended Neurological Exam Neurological exam: Present oriented X3 A/P Assessment and plan (1) SBO (small bowel obstruction): Status: Acute Narrative A/P Narrative: POD #13 Ex Lap, Extensive DOROTHY, SB Resection, Drainage Intra Abdominal Abscess with washout and drainage Doing Well Home today with Wound VAC and oral ABs Will likely remove drains prior to discharge Time Spent With Patient Time: Total time spent is greater than 50% in coordination of care (as documented) at patient's floor/unit and/or counseling patient:
[2021-05-26] MEDS: HYDROmorphone 1 MG/ML SYRINGE IV PRN (12:24)
== END 2021-05-26 15:15 | disposition home health service (06) | DRG 329 ==
LOC: ED 09:37 → MEDSUR 19:07 → ICU 05-13 16:40 → MEDSUR 05-17 18:16
PROVIDERS: ADMIT Surgery Surgical Critical Care; ATTEND Surgery Surgical Critical Care

== ENCOUNTER 2023-10-07 19:46 | Inpatient (IN) ==
[2023-10-07] MEDS ORDERED: IOPAMIDOL 100 ML BOTTLE IV ONE (19:47)
[2023-10-07] MEDS: IPRATROPIUM/ALBUTEROL 3 ML AMPUL.NEB NEB ONE ×3 (20:35→21:55)
[2023-10-07] MEDS: DEXAMETHASONE 10 MG/ML VIAL IV ONE (20:50)
[2023-10-07 20:57] LABS: Basophils # (Auto) 0.01 K/mcL (0.00-0.30); Basophils % (Auto) 0.1 % (0.0-2.0); Eosinophils # (Auto) 0.16 K/mcL (0.00-0.70); Eosinophils % (Auto) 1.4 % (0.0-7.0); Hematocrit 39.6 % (34.1-44.9); Hemoglobin 12.7 g/dL (11.2-15.7); Lymphocytes # (Auto) 0.84 K/mcL (1.50-4.80); Lymphocytes % (Auto) 7.2 % (15.5-49.0); Mean Cell Volume 98.3 fL (80.0-100.0); Mean Corpuscular HGB Conc 32.1 g/dL (31.0-36.0); Mean Platelet Volume 9.6 fL (8.8-12.5); Monocytes # (Auto) 0.61 K/mcL (0.10-0.90); Monocytes % (Auto) 5.2 % (1.0-12.0); Neutrophils % (Auto) 85.6 % (38.0-78.0); Platelet Count 258 K/mcL (140-440); RBC 4.03 M/mcL (3.59-5.38); Red Cell Distribution Width 14.4 % (11.5-14.5); WBC 11.7 K/mcL (4.5-11.0)
[2023-10-07 21:04] LABS: Appearance,Urine Clear (Clear); Bilirubin,Urine Negative (Negative); Color,Urine Yellow; Culture Indicated,Urine No; Glucose,Urine (UA) Negative (Negative); Ketones,Urine Trace mg/dL (Negative); Leukocyte Esterase,Urine Negative /uL (Negative); Nitrate,Urine Negative (Negative); Protein,Urine Negative (Negative); Specific Gravity,Urine 1.015 (1.000-1.035); Urine Blood Trace-intact ery/mcL (Negative); Urine RBC 0 /hpf (0-3); Urine Squamous Epithelial Cell 0 /hpf (0-4); Urine WBC 0 /hpf (0-4); Urobilinogen,Urine Normal
[2023-10-07 21:11] LABS: ALT/SGPT 17 U/L (<40); AST/SGOT 31 U/L (<32); Albumin 3.4 gm/dL (3.2-5.2); Albumin/Globulin Ratio 1.1 (1.0-2.3); Alkaline Phosphatase 95 U/L (39-117); Bilirubin,Total 0.8 mg/dL (0.1-1.0); Blood Urea Nitrogen 16 mg/dL (8-23); Calcium 9.4 mg/dL (8.6-10.4); Carbon Dioxide 31 mmol/L (22-30); Chloride 92 mmol/L (96-108); Globulin 3.1 gm/dL (2.2-3.7); Glomerular Filtration Rate 85; Glucose 98 mg/dL (70-105)
[2023-10-07] MEDS: 0.9 % SODIUM CHLORIDE 1,000 ML IV ONE (21:39)
[2023-10-07] MEDS: cefTRIAXone 2 GM in DEXTROSE 5% IN WATER 50 ML IV ONE (21:41)
[2023-10-07 21:55] LABS: INR 0.9 (0.9-1.1); Prothrombin Time 12.9 sec (11.9-14.5)
[2023-10-07] MEDS: ACETAMINOPHEN 1,000 MG/100 ML BAG IV ONE (21:55)
[2023-10-07] MEDS: diphenhydrAMINE 50 MG/ML VIAL IV ONE (22:20)
[2023-10-07 22:28] LABS: ABG Methemoglobin 0.2 % (0.4-1.5); VBG Base Excess 5 (-2-3); VBG HCO3 27.3 mmol/L (24.0-28.0); VBG Oxygen Saturation 85.4 % (40.0-70.0); VBG PCO2 32.1 mmHg (41.0-51.0); VBG PH 7.55 U (7.32-7.42); VBG PO2 52.2 mmHg (25.0-40.0); VBG Total CO2 28.3 mmol/L (25.0-29.0)
[2023-10-08] MEDS: morphine 15 MG TAB.SR.12H PO ONE (00:02)
[2023-10-08] MEDS: HYDROcodone/APAP 10/325MG TABLET PO ONE (00:02)
[2023-10-08] MEDS: AZITHROMYCIN 500 MG in DEXTROSE 5% IN WATER 250 ML IV SCH (03:34)
[2023-10-08] MEDS: cefTRIAXone 1 GM VIAL IV SCH (03:40)
[2023-10-08] MEDS: HYDROmorphone 0.5 MG/0.5 ML SYRINGE IV PRN (03:40)
[2023-10-08] MEDS ORDERED: IPRATROPIUM 2.5 ML AMPUL.NEB NEB PRN (11:09)
[2023-10-08] MEDS ORDERED: NALOXONE HCL 4 MG NASAL (PP) NS PRN (11:09)
[2023-10-08] MEDS ORDERED: ELETRIPTAN 40 MG PO PRN (11:21)
[2023-10-08] MEDS: CELECOXIB 200 MG CAPSULE PO SCH (11:33)
[2023-10-08] MEDS: morphine 15 MG TAB.SR.12H PO SCH (11:33)
[2023-10-08] MEDS: LORazepam 0.5 MG TABLET PO PRN (11:33)
[2023-10-08] MEDS: MULTIVIT,THER IRON,CA,FA & MIN 1 TABLET PO SCH (11:33)
[2023-10-08] MEDS: LOSARTAN 25 MG TABLET PO SCH (11:33)
[2023-10-08] MEDS: ASPIRIN 81 MG TAB.CHEW PO SCH (11:33)
[2023-10-08] MEDS: CITALOPRAM 20 MG TABLET PO SCH (11:33)
[2023-10-08] MEDS: THYROID, PORK 60 MG TABLET PO SCH (11:34)
[2023-10-08] MEDS ORDERED: BENZONATATE 100 MG CAPSULE PO SCH (11:55)
[2023-10-08] MEDS: OMEPRAZOLE 20 MG CAPSULE PO SCH (12:43)
[2023-10-08] MEDS: methylPREDNISolone SOD SUCC 40 MG/ML VIAL IV SCH (12:43)
[2023-10-08] MEDS: guaiFENesin 600 MG TAB.SR.12H PO SCH (12:44)
[2023-10-08] MEDS: VITAMIN E (DL,TOCOPHERYL ACET) 400 UNIT CAPSULE PO SCH (12:44)
[2023-10-08] MEDS: ASCORBIC ACID 500 MG TABLET PO SCH (12:44)
[2023-10-08] MEDS: MAGNESIUM OXIDE 400 MG TABLET PO SCH (12:44)
[2023-10-08] MEDS: BUDESONIDE 0.5 MG/2 ML AMPUL.NEB NEB SCH (13:52)
[2023-10-08] MEDS: PRASTERONE 50 MG PO SCH (13:57)
[2023-10-08] MEDS: HEPARIN 5,000 UNIT/ML VIAL SQ SCH (14:07)
[2023-10-08] MEDS: HYDROcodone/APAP 10/325MG TABLET PO PRN (17:46)
[2023-10-08] MEDS: CARVEDILOL 3.125 MG TABLET PO SCH (17:47)
[2023-10-08] MEDS: Budesonide-Glycopyr-Formoterol [Breztri Aerosphere] Inhaler INH SCH (21:00)
[2023-10-08] MEDS: MELATONIN 12 MG PO SCH (21:38)
[2023-10-08] MEDS: MELATONIN 3 MG TABLET PO ONE ×2 (21:51→21:54)
[2023-10-09] MEDS: POTASSIUM CHLORIDE 20 MEQ TABLET PO SCH (08:03)
[2023-10-09] MEDS: VITAMIN B COMPLEX 1 CAPSULE PO SCH (08:05)
[2023-10-09] MEDS: VITAMIN D3 125 MCG TABLET PO SCH (08:05)
[2023-10-09] MEDS: POLYETHYLENE GLYCOL 3350 17 GM PACKET PO SCH (08:14)
[2023-10-09] MEDS: ATORVASTATIN 40 MG TABLET PO SCH (08:14)
[2023-10-09] MEDS: FUROSEMIDE 20 MG TABLET PO SCH (08:14)
[2023-10-09] MEDS: cefTRIAXone 2 GM in DEXTROSE 5% IN WATER 50 ML IV SCH (08:37)
[2023-10-09 09:43] LABS: ALT/SGPT 17 U/L (<40); AST/SGOT 23 U/L (<32); Albumin 3.1 gm/dL (3.2-5.2); Albumin/Globulin Ratio 1.1 (1.0-2.3); Alkaline Phosphatase 77 U/L (39-117); Bilirubin,Total 0.3 mg/dL (0.1-1.0); Blood Urea Nitrogen 13 mg/dL (8-23); Calcium 8.7 mg/dL (8.6-10.4); Carbon Dioxide 28 mmol/L (22-30); Chloride 96 mmol/L (96-108); Globulin 2.8 gm/dL (2.2-3.7); Glomerular Filtration Rate 95; Glucose 290 mg/dL (70-105)
[2023-10-09 11:15] LABS: Basophils # (Auto) 0.01 K/mcL (0.00-0.30); Basophils % (Auto) 0.1 % (0.0-2.0); Eosinophils # (Auto) 0 K/mcL (0.00-0.70); Eosinophils % (Auto) 0 % (0.0-7.0); Hematocrit 34.4 % (34.1-44.9); Hemoglobin 11.1 g/dL (11.2-15.7); Lymphocytes % (Auto) 2.4 % (15.5-49.0); Mean Corpuscular HGB Conc 32.3 g/dL (31.0-36.0); Monocytes # (Auto) 0.18 K/mcL (0.10-0.90); Monocytes % (Auto) 1.1 % (1.0-12.0); Neutrophils % (Auto) 95.9 % (38.0-78.0); Platelet Count 245 K/mcL (140-440); RBC 3.51 M/mcL (3.59-5.38); Red Cell Distribution Width 14.6 % (11.5-14.5); WBC 16.4 K/mcL (4.5-11.0)
[2023-10-09] MEDS: 0.9 % SODIUM CHLORIDE 10 ML SYRINGE IV SCH (20:46)
[2023-10-10 05:46] LABS: Basophils # (Auto) 0.01 K/mcL (0.00-0.30); Basophils % (Auto) 0.1 % (0.0-2.0); Eosinophils # (Auto) 0 K/mcL (0.00-0.70); Eosinophils % (Auto) 0 % (0.0-7.0); Hematocrit 34.3 % (34.1-44.9); Hemoglobin 11.1 g/dL (11.2-15.7); Lymphocytes # (Auto) 0.63 K/mcL (1.50-4.80); Lymphocytes % (Auto) 3.9 % (15.5-49.0); Mean Cell Volume 97.7 fL (80.0-100.0); Mean Corpuscular HGB Conc 32.4 g/dL (31.0-36.0); Monocytes # (Auto) 0.75 K/mcL (0.10-0.90); Monocytes % (Auto) 4.7 % (1.0-12.0); Neutrophils % (Auto) 90.6 % (38.0-78.0); Platelet Count 251 K/mcL (140-440); RBC 3.51 M/mcL (3.59-5.38); Red Cell Distribution Width 14.6 % (11.5-14.5)
[2023-10-10 06:01] LABS: ALT/SGPT 16 U/L (<40); AST/SGOT 19 U/L (<32); Albumin/Globulin Ratio 1.1 (1.0-2.3); Alkaline Phosphatase 72 U/L (39-117); Bilirubin,Total 0.2 mg/dL (0.1-1.0); Blood Urea Nitrogen 20 mg/dL (8-23); Calcium 8.8 mg/dL (8.6-10.4); Carbon Dioxide 30 mmol/L (22-30); Chloride 99 mmol/L (96-108); Globulin 2.7 gm/dL (2.2-3.7); Glomerular Filtration Rate 95; Glucose 140 mg/dL (70-105)
[2023-10-10] MEDS: IPRATROPIUM/ALBUTEROL 3 ML AMPUL.NEB NEB PRN (09:07)
[2023-10-10] MEDS ORDERED: FLUZONE HD QS2023-24/PF 240 MCG/0.7 ML SYRINGE IM ONE (10:00)
[2023-10-10] MEDS: FLUZONE HD QS2023-24/PF 240 MCG/0.7 ML SYRINGE IM ONE (14:13)
[2023-10-10] MEDS: FLEETS ADULT 1 DOSE ENEMA PR ONE ×3 (18:54→22:09)
[2023-10-11 06:35] LABS: Basophils # (Auto) 0.01 K/mcL (0.00-0.30); Basophils % (Auto) 0.1 % (0.0-2.0); Eosinophils # (Auto) 0 K/mcL (0.00-0.70); Eosinophils % (Auto) 0 % (0.0-7.0); Hematocrit 34.2 % (34.1-44.9); Hemoglobin 11.1 g/dL (11.2-15.7); Lymphocytes % (Auto) 3.3 % (15.5-49.0); Mean Cell Volume 97.4 fL (80.0-100.0); Mean Corpuscular HGB Conc 32.5 g/dL (31.0-36.0); Mean Platelet Volume 10.4 fL (8.8-12.5); Monocytes # (Auto) 0.73 K/mcL (0.10-0.90); Monocytes % (Auto) 4.9 % (1.0-12.0); Platelet Count 250 K/mcL (140-440); RBC 3.51 M/mcL (3.59-5.38); Red Cell Distribution Width 14.4 % (11.5-14.5)
[2023-10-11 06:57] LABS: ALT/SGPT 16 U/L (<40); AST/SGOT 19 U/L (<32); Albumin 3.1 gm/dL (3.2-5.2); Albumin/Globulin Ratio 1.2 (1.0-2.3); Alkaline Phosphatase 70 U/L (39-117); Bilirubin,Total 0.3 mg/dL (0.1-1.0); Blood Urea Nitrogen 21 mg/dL (8-23); Calcium 8.8 mg/dL (8.6-10.4); Carbon Dioxide 30 mmol/L (22-30); Chloride 97 mmol/L (96-108); Globulin 2.5 gm/dL (2.2-3.7); Glomerular Filtration Rate 95; Glucose 131 mg/dL (70-105)
[2023-10-11] MEDS: cefTRIAXone 2 GM VIAL ONE (10:07)
[2023-10-12 05:57] LABS: ALT/SGPT 17 U/L (<40); AST/SGOT 19 U/L (<32); Albumin 3.1 gm/dL (3.2-5.2); Albumin/Globulin Ratio 1.1 (1.0-2.3); Alkaline Phosphatase 73 U/L (39-117); Bilirubin,Total 0.4 mg/dL (0.1-1.0); Blood Urea Nitrogen 25 mg/dL (8-23); Calcium 8.8 mg/dL (8.6-10.4); Carbon Dioxide 31 mmol/L (22-30); Chloride 93 mmol/L (96-108); Globulin 2.7 gm/dL (2.2-3.7); Glomerular Filtration Rate 95; Glucose 137 mg/dL (70-105)
[2023-10-12 06:18] LABS: Basophils # (Auto) 0.01 K/mcL (0.00-0.30); Basophils % (Auto) 0.1 % (0.0-2.0); Eosinophils # (Auto) 0 K/mcL (0.00-0.70); Eosinophils % (Auto) 0 % (0.0-7.0); Hemoglobin 11.7 g/dL (11.2-15.7); Lymphocytes # (Auto) 0.59 K/mcL (1.50-4.80); Lymphocytes % (Auto) 3.9 % (15.5-49.0); Mean Corpuscular HGB Conc 32.5 g/dL (31.0-36.0); Mean Platelet Volume 10.4 fL (8.8-12.5); Monocytes # (Auto) 0.58 K/mcL (0.10-0.90); Monocytes % (Auto) 3.8 % (1.0-12.0); Neutrophils % (Auto) 91.4 % (38.0-78.0); Platelet Count 273 K/mcL (140-440); RBC 3.71 M/mcL (3.59-5.38); Red Cell Distribution Width 14.4 % (11.5-14.5); WBC 15.3 K/mcL (4.5-11.0)
[2023-10-12] MEDS: ESTRADIOL CYPIONATE 5 MG/ML ML IM SCH (09:06)
[2023-10-12] MEDS ORDERED: methylPREDNISolone SOD SUCC 40 MG/ML VIAL IV SCH ×2 (14:00→21:00)
[2023-10-13] MEDS ORDERED: predniSONE 20 MG TABLET PO SCH (08:00)
== END 2023-10-12 11:15 | DRG 871 ==
LOC: ED 19:46 → INTOOBSV 10-08 03:21 → MEDSUR 10-08 03:21
PROVIDERS: ADMIT Internal Medicine; ATTEND Internal Medicine

== ENCOUNTER 2024-11-26 11:50 | Inpatient (IN) ==
[2024-11-26 13:02] LABS: Basophils # (Auto) 0.08 K/mcL (0.00-0.30); Basophils % (Auto) 0.8 % (0.0-2.0); Eosinophils # (Auto) 0.27 K/mcL (0.00-0.70); Eosinophils % (Auto) 2.6 % (0.0-7.0); Hemoglobin 11.2 g/dL (11.2-15.7); Lymphocytes # (Auto) 0.93 K/mcL (1.50-4.80); Lymphocytes % (Auto) 8.8 % (15.5-49.0); Mean Cell Volume 90.7 fL (80.0-100.0); Mean Corpuscular HGB Conc 31.1 g/dL (31.0-36.0); Mean Platelet Volume 10.9 fL (8.8-12.5); Neutrophils % (Auto) 69.1 % (38.0-78.0); Platelet Count 291 K/mcL (140-440); RBC 3.97 M/mcL (3.59-5.38); Red Cell Distribution Width 15.7 % (11.5-14.5); WBC 10.6 K/mcL (4.5-11.0)
[2024-11-26 13:17] LABS: Alcohol, Blood < 10.1 mg/dL; Alcohol,Blood < 0.010 gm/dL (<0.010)
[2024-11-26 13:28] LABS: ALT/SGPT 14 U/L (<40); AST/SGOT 35 U/L (<32); Albumin 3.4 gm/dL (3.2-5.2); Albumin/Globulin Ratio 1.1 (1.0-2.3); Alkaline Phosphatase 67 U/L (39-117); Bilirubin,Total 0.5 mg/dL (0.1-1.0); Blood Urea Nitrogen 21 mg/dL (8-23); Calcium 9.9 mg/dL (8.6-10.4); Carbon Dioxide 29 mmol/L (22-30); Chloride 94 mmol/L (96-108); Globulin 3.2 gm/dL (2.2-3.7); Glomerular Filtration Rate 89; Glucose 98 mg/dL (70-105); Potassium 3.9 mmol/L (3.3-5.1); Sodium 139 mmol/L (133-145)
[2024-11-26 13:29] LABS: Thyroid Stimulating Hormone 1.05 uIU/mL (0.27-5.01)
[2024-11-26 14:05] LABS: Free T4 (Free Thyroxine) 1.53 ng/dL (0.93-1.70)
[2024-11-26 14:20] LABS: Appearance,Urine CLOUDY (Clear); Bacteria,Urine MANY /hpf (0); Bilirubin,Urine Negative (Negative); Calcium Oxalate Crystals,Urine MOD /hpf; Color,Urine AMBER; Glucose,Urine (UA) Negative (Negative); Ketones,Urine 20 mg/dL (Negative); Leukocyte Esterase,Urine 500 /uL (Negative); Mucus,Urine MANY /hpf; Nitrate,Urine Negative (Negative); Protein,Urine 100 mg/dL (Negative); Specific Gravity,Urine 1.025 (1.000-1.035); Urine Blood Negative (Negative); Urine RBC 8 /hpf (0-3); Urine Squamous Epithelial Cell 4 /hpf (0-4); Urine WBC > 182 /hpf (0-4)
[2024-11-26] MEDS: cefTRIAXone 1 GM VIAL IV ONE (14:45)
[2024-11-26 15:42] LABS: Amphetamine Screen,Urine None detected; Barbiturate Screen,Urine None detected; Benzodiazepines Screen,Urine Suspect positive; Cannabinoid Screen,Urine None detected; Cocaine Screen,Urine None detected; Fentanyl, Urine Screen None Detected; Opiate Screen,Urine None detected; Oxycodone, Urine Screen Suspect Positive; Phencyclidine Screen,Urine None detected
[2024-11-26] MEDS ORDERED: ONDANSETRON 4 MG/2 ML VIAL IV PRN (16:04)
[2024-11-26] MEDS ORDERED: LORazepam 2 MG/ML VIAL IV PRN (16:35)
[2024-11-26] MEDS: IPRATROPIUM/ALBUTEROL 3 ML AMPUL.NEB NEB ONE (16:58)
[2024-11-26] MEDS: IPRATROPIUM/ALBUTEROL 3 ML AMPUL.NEB NEB PRN (16:58)
[2024-11-26] MEDS: DIAZEPAM 10 MG/2 ML SYRINGE IV PRN (17:44)
[2024-11-26] MEDS ORDERED: SODIUM CHLORIDE 3 % 15 ML VIAL.NEB INH PRN (17:54)
[2024-11-26] MEDS ORDERED: PIPERACILLIN SODIUM/TAZOBACTAM 4.5 GM in DEXTROSE 5% IN WATER 100 ML IV SCH (18:00)
[2024-11-26] MEDS ORDERED: BENZONATATE 100 MG CAPSULE PO PRN (18:02)
[2024-11-26] MEDS: PIPERACILLIN SODIUM/TAZOBACTAM 3.375 GM in DEXTROSE 5% IN WATER 50 ML IV ONE (19:32)
[2024-11-26] MEDS: SENNOSIDES 1 TABLET PO SCH (20:35)
[2024-11-26] MEDS: DOCUSATE SODIUM 100 MG CAPSULE PO SCH (20:53)
[2024-11-26] MEDS: hydrOXYzine 25 MG TABLET PO PRN (20:55)
[2024-11-26] MEDS: morphine 15 MG TABLET PO PRN (20:55)
[2024-11-26] MEDS: MELATONIN 3 MG TABLET PO SCH (20:55)
[2024-11-26] MEDS ORDERED: MELATONIN 3 MG TABLET PO SCH (21:00)
[2024-11-26] MEDS ORDERED: NON FORMULARY MEDICATION 1 DOSE MISCELL (Melatonin 10 MG) PO SCH (21:00)
[2024-11-26] MEDS: PIPERACILLIN SODIUM/TAZOBACTAM 3.375 GM in DEXTROSE 5% IN WATER 100 ML IV SCH (21:11)
[2024-11-26] MEDS: Budesonide-Glycopyr-Formoterol [Breztri Aerosphere] 160MCG-9MCG-4.8MCG/ACT Inhaler INH SCH (21:12)
[2024-11-26] MEDS: Progesterone Micronized 200 mg capsule PO SCH (21:12)
[2024-11-26] MEDS: 0.9 % SODIUM CHLORIDE 10 ML SYRINGE IV SCH (21:12)
[2024-11-26] MEDS: ACETYLCYSTEINE 800 MG/4 ML VIAL NEB SCH ×2 (21:35→21:44)
[2024-11-27 07:31] LABS: ALT/SGPT 17 U/L (<40); AST/SGOT 40 U/L (<32); Albumin 3.2 gm/dL (3.2-5.2); Albumin/Globulin Ratio 0.9 (1.0-2.3); Alkaline Phosphatase 71 U/L (39-117); Bilirubin,Direct 0.3 mg/dL (<0.3); Bilirubin,Total 0.6 mg/dL (0.1-1.0); Blood Urea Nitrogen 18 mg/dL (8-23); Calcium 10.1 mg/dL (8.6-10.4); Carbon Dioxide 31 mmol/L (22-30); Chloride 94 mmol/L (96-108); Globulin 3.5 gm/dL (2.2-3.7); Glomerular Filtration Rate 84; Glucose 120 mg/dL (70-105); Lactate Dehydrogenase 608 U/L (135-225); Phosphorous 2.8 mg/dL (2.5-4.5); Potassium 3.6 mmol/L (3.3-5.1); Sodium 138 mmol/L (133-145); Triglycerides 182 mg/dL (<150); Uric Acid 6.6 mg/dL (2.5-8.0)
[2024-11-27 08:07] LABS: Basophils # (Auto) 0.04 K/mcL (0.00-0.30); Basophils % (Auto) 0.3 % (0.0-2.0); Eosinophils % (Auto) 1.7 % (0.0-7.0); Hematocrit 37.1 % (34.1-44.9); Hemoglobin 11.8 g/dL (11.2-15.7); Lymphocytes # (Auto) 1.02 K/mcL (1.50-4.80); Lymphocytes % (Auto) 8.6 % (15.5-49.0); Mean Cell Volume 89.4 fL (80.0-100.0); Mean Corpuscular HGB Conc 31.8 g/dL (31.0-36.0); Mean Platelet Volume 11.6 fL (8.8-12.5); Monocytes # (Auto) 2.09 K/mcL (0.10-0.90); Monocytes % (Auto) 17.6 % (1.0-12.0); Platelet Count 285 K/mcL (140-440); RBC 4.15 M/mcL (3.59-5.38); Red Cell Distribution Width 15.6 % (11.5-14.5); WBC 11.9 K/mcL (4.5-11.0)
[2024-11-27] MEDS: OMEPRAZOLE 20 MG CAPSULE PO SCH (08:23)
[2024-11-27] MEDS: THYROID, PORK 60 MG TABLET PO SCH (08:23)
[2024-11-27] MEDS ORDERED: cefTRIAXone 1 GM VIAL IV SCH (09:00)
[2024-11-27] MEDS ORDERED: ENOXAPARIN 40 MG/0.4 ML SYRINGE SQ SCH (09:00)
[2024-11-27] MEDS ORDERED: MINERAL OIL 1 DOSE ENEMA PR ONE (09:04)
[2024-11-27] MEDS: predniSONE 5 MG TABLET PO SCH (11:17)
[2024-11-27] MEDS: ATORVASTATIN 40 MG TABLET PO SCH (11:19)
[2024-11-27] MEDS: DULoxetine 30 MG CAPSULE PO SCH (11:24)
[2024-11-27] MEDS: MAGNESIUM OXIDE 400 MG TABLET PO SCH (11:42)
[2024-11-27] MEDS: FUROSEMIDE 20 MG TABLET PO SCH (11:42)
[2024-11-27] MEDS: POTASSIUM CHLORIDE 20 MEQ TABLET PO SCH (11:43)
[2024-11-27 12:07] VITALS: TEMP 98.9; O2SAT 94
[2024-12-02 17:08] LABS: Alprazolam, Urine Negative (Cutoff=100); Clonazepam, Urine Negative (Cutoff=100); Flurazepam, Urine Negative (Cutoff=100); Lorazepam, Urine Negative (Cutoff=100); Midazolam, Urine Negative (Cutoff=100); Nordiazepam, Urine Negative (Cutoff=100); Oxazepam, Urine Negative (Cutoff=100); Temazepam, Urine Negative (Cutoff=100); Triazolam, Urine Negative (Cutoff=100)
== END 2024-11-27 13:01 | disposition short-term general hospital (02) | DRG 71 ==
LOC: ED 11:50 → MEDSUR 15:52
PROVIDERS: ADMIT Internal Medicine; ATTEND Internal Medicine